=== PATIENT | female | born 1950 | race Two or more races ===

== ENCOUNTER → 2022-07-30 10:16 | Outpatient (BNV) | payer OTHER, SELFPAY | PROVIDERS: PCP Family Medicine; Visit Provider Internal Medicine Medical Oncology | DX: D64.9 Anemia, unspecified (principal) | CPT/HCPCS: 99204; 99213 ==

== ENCOUNTER 2023-04-02 10:10 | Outpatient (REF) | payer OTHER, SELFPAY ==
[2023-04-02 15:07] LABS: C Reactive Protein 0.17 mg/dL (< or = 0.50)
[2023-04-02 15:39] LABS: Rheumatoid Factor < 13.0 IU/mL (<15.0)
[2023-04-02 16:19] LABS: Erythrocyte Sedimentation Rate 16 MM/HR (0-20)
[2023-04-03 13:38] LABS: IgA 261 mg/dL (70-320); IgG 1386 mg/dL (600-1540); IgM 65 mg/dL (50-300)
[2023-04-03 16:48] LABS: Cyclic Citrullinated Peptide <16 UNITS
[2023-04-03 18:29] LABS: Transglutaminase Ab IgG <1.0 U/mL
[2023-04-06 14:48] LABS: Anti Nuclear Antibody Screen NEGATIVE (NEGATIVE)
== END 2023-04-02 10:11 | disposition home or self-care (01) ==
LOC: HO.CHCLDS 10:10
PROVIDERS: Visit Provider Family Medicine
DX: M19.90 Unspecified osteoarthritis, unspecified site (principal); R19.7 Diarrhea, unspecified
CPT/HCPCS: 36415; 82784; 85652; 86038; 86140; 86200; 86364; 86431

== ENCOUNTER 2023-04-03 08:35 | Outpatient (REF) | payer OTHER, SELFPAY ==
--- NOTE | ~2023-04-03 | XR_ITS ---
EXAMINATION: XR LUMBOSACRAL SPINE CLINICAL INFORMATION: Lower back pain. COMPARISON: None available. TECHNIQUE: AP and lateral views of the lumbar spine and lateral view of the lumbosacral junction. FINDINGS: There is bony demineralization. There is a minimal lumbar dextroscoliosis. Vertebral body heights are normal. There is mild disc space narrowing at L1-L2. The remaining disc spaces are well-maintained. No acute fracture or spondylolisthesis is seen. There is multi-level lumbar spondylosis. There is facet arthropathy, most pronounced at L4-L5. The paravertebral soft tissues are unremarkable. Multiple pelvic phleboliths are seen. XR/XR lumbar spine 2-3V IMPRESSION: 1. There is a slight lumbar dextroscoliosis. 2. There is mild degenerative disc disease at L1-L2. 3. There is multi-level lumbar spondylosis. 4. There is lumbar facet arthropathy, most pronounced at L4-L5.
== END 2023-04-03 08:36 | disposition home or self-care (01) ==
LOC: HO.HHCX 08:35
PROVIDERS: Visit Provider Family Medicine
DX: M19.90 Unspecified osteoarthritis, unspecified site (principal); M54.9 Dorsalgia, unspecified
CPT/HCPCS: 72100

== ENCOUNTER 2023-04-17 09:10 | Outpatient (REF) | payer OTHER, SELFPAY ==
[2023-04-23 19:49] LABS: Calprotectin, Fecal 456 mcg/g
== END 2023-04-17 09:11 | disposition home or self-care (01) ==
LOC: HO.CHCLNP 09:10
PROVIDERS: Visit Provider Family Medicine
DX: R19.7 Diarrhea, unspecified (principal)
CPT/HCPCS: 36415; 83993; 87329

== ENCOUNTER 2023-04-28 10:26 | Emergency (ER) | payer OTHER, SELFPAY ==
[2023-04-28 10:31] VITALS: BP 172/71; PULSE 57; RESP 16; TEMP 36.8; O2SAT 98; BMI 22.2
--- NOTE | 2023-04-28 10:43 | ECG_ITS ---
Test Reason : chest pain Blood Pressure : / mmHG Vent. Rate : 058 BPM Atrial Rate : 058 BPM P-R Int : 174 ms QRS Dur : 080 ms QT Int : 416 ms P-R-T Axes : 049 003 022 degrees QTc Int : 408 ms Sinus bradycardia Otherwise normal ECG No previous ECGs available Referred By: Generic ED Physician Electronically Signed By:TR VASQUEZ
[2023-04-28 11:00] LABS: MANUAL DIFF FLAG NO
[2023-04-28 11:03] LABS: Basophils Percent Auto 0.5 % (0-2); Eosinophils Absolute Auto 0.2 X10*3/uL (0.0-0.4); Eosinophils Percent Auto 2.7 % (0-4); Hematocrit 35.2 % (37.0-47.0); Hemoglobin 11.1 g/dl (12.0-16.0); Imm Gran Abs Auto 0.01 X10*3/uL (0.00-0.03); Imm Gran Pct Auto 0.2 % (0.0-0.4); Lymphocytes Absolute Auto 1.6 X10*3/uL (1.2-4.9); Lymphocytes Percent Auto 29.1 % (20-40); Mean Corpuscular HGB Conc 31.5 g/dl (31.0-35.0); Mean Corpuscular Hemoglobin 28.8 pg (27.0-33.0); Mean Corpuscular Volume 91.4 fL (80.0-98.0); Mean Platelet Volume 11.3 fL (9.4-12.3); Monocytes Absolute Auto 0.3 X10*3/uL (0.1-1.2); Monocytes Percent Auto 5.1 % (2-11); Neutrophils Absolute Auto 3.5 x10*3/uL (2.0-8.3); Neutrophils Percent Auto 62.4 % (45-73); Platelet Count 253 X10*3/uL (160-400); Red Blood Count 3.85 X10*6/uL (4.20-5.50); Red Cell Distribution Width 13.3 % (11.0-16.0); White Blood Count 5.5 X10*3/uL (4.8-10.8)
[2023-04-28 11:15] LABS: Anion Gap 9 (12-20); Blood Urea Nitrogen 14 mg/dL (9-16); Calcium 9.4 mg/dL (8.4-10.2); Carbon Dioxide 24 mmol/L (22-29); Chloride 111 mmol/L (96-108); Creatinine Clr Calc Pharmacy 45.6; Estimated Glomerular Filt Rate > 60; Glucose Random 86 mg/dL (60-115); Potassium 3.9 mmol/L (3.3-5.1); Sodium 140 mmol/L (135-145)
[2023-04-28 11:31] LABS: Troponin-I High Sensitivity < 2.7 ng/L (<3.5-17.0)
[2023-04-28 15:01] VITALS: BP 175/71; PULSE 60; RESP 16; TEMP 36.8; O2SAT 97
--- NOTE | 2023-04-28 15:26 | PC.NURSE ---
Pt placed on bedside monitor. Presents with HTN, (175/71, HR 60). Denies chest pain at this time, but endorsed heaviness in head . Respiration even and unlabored. No edema noted. Abd soft/non tender.
--- NOTE | 2023-04-28 15:28 | PC.NURSE ---
son at bedside
--- NOTE | 2023-04-28 15:30 | ED.CHESTPAIN ---
HPI - Chest Pain General Chief Complaint: Chest Pain Stated Complaint: Blood Pressure Issues Time Seen by Provider: 04/28/23 15:17 Source: patient and family Mode of arrival: ambulatory Limitations: no limitations History of Present Illness HPI narrative: Patient comes to the emergency room accompanied by her son. Patient went to her therapy for chronic back pain today, patient's blood pressure was in the 170s. Patient states that this morning she woke up with headache. Patient denies chest pain or shortness of breath. Patient states that she is compliant with her blood pressure medications, takes losartan 50 mg daily. At this time, patient having mild headache, no blurred vision, no chest pain or shortness of breath Related Data Home Medications Medication Instructions Recorded Confirmed amlodipine 10 mg tablet 1 tab DAILY 07/30/22 03/13/23 ferrous gluconate 324 mg (37.5 mg 2 tab PO QAM 07/30/22 03/13/23 iron) tablet rosuvastatin 40 mg tablet 1 tab QAM 07/30/22 03/13/23 sennosides 8.6 mg tablet (senna) 2 tab PO DAILY 07/30/22 03/13/23 Previous Rx's Medication Instructions Recorded amlodipine 10 mg tablet 10 mg PO DAILY #30 tabs 04/28/23 Allergies Allergy/AdvReac Type Severity Reaction Status Date / Time No Known Allergies Allergy Verified 03/13/23 09:56 Review of Systems Review of Systems: Constitutional : No Weight loss, No Fever, No Chills, No Night Sweats, No Fatigue, No Malaise ENT/Mouth : No Hearing loss, No Ear Pain, No Nasal Congestion, No Sinus Pain, No Hoarseness, No sore throat, No Rhinorrhea, No Swallowing Difficulty Eyes: No Eye Pain, No Swelling, No Redness, No Foreign Body, No Discharge, No Vision Changes Cardiovascular : No Chest Pain, No SOB, No Dyspnea on Exertion, No Orthopnea, No Edema, No Palpitations, complaining of high blood pressure Respiratory : No Cough, No Sputum, No Wheezing, No Smoke Exposure, No Dyspnea Gastrointestinal : No Nausea, No Vomiting, No Diarrhea, No Constipation, No abdominal Pain, No Hematochezia, No Melena Genitourinary : no irregular bleeding, No Dysuria, No Urinary Frequency, No Hematuria, No Urinary Incontinence, No Urgency, No Flank Pain, No Urinary Flow Changes, No Hesitancy Musculoskeletal : No joint pain, No Myalgias, No Joint Swelling Skin : No Skin Lesions, No rash Neuro : No Weakness, No Numbness, No Paresthesias, No Loss of Consciousness, No Dizziness, complaining of Headache Psych : No Anxiety/Panic, No Depression, No SI/HI/AH/VH, No Social Issues, Heme/Lymph: No Bruising, No Bleeding,No Lymphadenopathy Endocrine : No Polyuria, No Polydipsia, No Temperature Intolerance [facility] Past Medical History Medical History (Updated 04/28/23 @ 15:35 by Cecelia Adams MD) Hypertension Anemia Cataracts, both eyes Surgical History History of Family History Family History Mother Bone cancer Sister Breast cancer Maternal Uncle Colon cancer Maternal Grandfather Colon cancer Social History Social History Household Members: Children Housing: Apartment Are you a primary client care coordinator to a significant other at home: No 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 Oriented X3. No acute distress. Eyes: Pupils equal, round and reactive to light. ENT: Pharynx normal. Neck: Normal inspection. Neck supple. No lymph nodes noted. No crepitus CVS: Normal heart rate and rhythm. Pulses normal. Normal S1 and S2 Respiratory: No respiratory distress. Breath sounds normal. No Wheezing. No rales Abdomen: Soft and nontender. No rigidity. No distention. Skin: Skin warm and dry. Normal skin color. Normal skin turgor. Extremities: No lower extremity edema. No Lacerations. No Rash Neuro: Oriented X 3. No motor deficit. No sensory deficit. Moving all extremities. No slurred speech. CN 2 through 12 grossly intact Psych: calm, cooperative, normal affect Medical Decision Making Medical Decision Making [facility] Narrative: -my interpretation EKG: Sinus bradycardia, 158, no ST segment depression or elevation, no T-wave inversion, QTC 408 -my interpretation of labs: Chronic anemia, stable hemoglobin, chemistry unremarkable, troponin negative -patient's blood pressure 150 systolic -patient was given 1 dose of p.o. ibuprofen in the emergency room -patient states that she used to take amlodipine 10 mg, then because he was not controlling her blood pressure, her medications were completely switched and now taking losartan. Discussed with the patient that taking both medications losartan and amlodipine together may help control her blood pressure better. Patient will keep a log of her blood pressures and follow up with her primary care physician. Differential Diagnosis Differential Diagnoses: The differential diagnosis associated with the presentation includes (Hypertension, pain causing hypertension) Lab Data [facility] Lab Attestation statement: I reviewed the patient's lab results. 04/28/23 10:52 04/28/23 10:52 Labs: Lab Results 04/28/23 Range/Units 10:52 WBC 5.5 (4.8-10.8) X10*3/uL RBC 3.85 L (4.20-5.50) X10*6/uL Hgb 11.1 L (12.0-16.0) g/dl Hct 35.2 L (37.0-47.0) % MCV 91.4 (80.0-98.0) fL MCH 28.8 (27.0-33.0) pg MCHC 31.5 (31.0-35.0) g/dl RDW 13.3 (11.0-16.0) % Plt Count 253 (160-400) X10*3/uL MPV 11.3 (9.4-12.3) fL Immature Gran % (Auto) 0.2 (0.0-0.4) % Neut % (Auto) 62.4 (45-73) % Lymph % (Auto) 29.1 (20-40) % [place] % (Auto) 5.1 (2-11) % Eos % (Auto) 2.7 (0-4) % Baso % (Auto) 0.5 (0-2) % Lymph # (Auto) 1.6 (1.2-4.9) X10*3/uL [place] # (Auto) 0.3 (0.1-1.2) X10*3/uL Eos # (Auto) 0.2 (0.0-0.4) X10*3/uL Baso # (Auto) 0.0 (0.0-0.2) X10*3/uL Abs Immat Gran (auto) 0.01 (0.00-0.03) X10*3/uL Absolute Neuts (auto) 3.5 (2.0-8.3) x10*3/uL Absolute Nucleated RBC 0.000 (0.0-0.012) X10*3/uL Nucleated RBC % (auto) 0.0 (0.0-0.2) /100WBC Sodium 140 (135-145) mmol/L Potassium 3.9 (3.3-5.1) mmol/L Chloride 111 H (96-108) mmol/L Carbon Dioxide 24 (22-29) mmol/L Anion Gap 9 L (12-20) BUN 14 (9-16) mg/dL Creatinine 0.75 (0.5-1.4) mg/dL Estim Creat Clear Calc 45.6 Estimated GFR > 60 Random Glucose 86 (60-115) mg/dL Calcium 9.4 (8.4-10.2) mg/dL Troponin I High Sens < 2.7 (<3.5-17.0) ng/L Critical Care Time Critical Care Time Critical Care Time: Yes Total Critical Care Time: 30 Attestation: I have personally provided critical care time. Time includes review of lab data, radiology results, discussion with consultants, and monitoring for potential decompensation. Intervention performed as documented. Discharge Plan Discharge Clinical Impression: Hypertension Patient Disposition: Home, Self-Care Instructions: Hypertension (ED) Additional Instructions: Continue taking losartan 50 mg, add amlodipine 10 mg daily. Both of her medications can be taken together. Please follow-up with your primary care physician tomorrow. If you have any worsening or new symptoms, please return to the emergency room or call 911 Prescriptions: New amlodipine 10 mg tablet 10 mg PO DAILY Qty: 30 1RF No Action sennosides [senna] 8.6 mg tablet 2 tab PO DAILY amlodipine 10 mg tablet 1 tab DAILY rosuvastatin 40 mg tablet 1 tab QAM ferrous gluconate 324 mg (37.5 mg iron) tablet 2 tab PO QAM
[2023-04-28 15:33] VITALS: BP 134/71; PULSE 66; RESP 13; O2SAT 96
[2023-04-28] MEDS: Ibuprofen 600 MG TABLET PO (15:39)
--- NOTE | 2023-04-28 15:52 | PC.NURSE ---
Pt medically cleared for discharge. Discharge reviewed with pt and son w/ a staff medical staff director. Aware of plan of care.
== END 2023-04-28 15:55 | disposition home or self-care (01) ==
PROVIDERS: Emergency Provider Emergency Medicine; PCP Family Medicine
DX: I10 Essential (primary) hypertension (principal); D64.9 Anemia, unspecified; Z79.899 Other long term (current) drug therapy
CPT/HCPCS: 36415; 80048; 84484; 85025; 93005; 99283; 99284

== ENCOUNTER 2023-05-26 10:00 | Outpatient (RCR) | payer OTHER, SELFPAY ==
[2023-04-23 09:02] VITALS: BP 159/73
== END 2023-05-26 10:44 | disposition home or self-care (01) ==
LOC: HO.PT 10:00
PROVIDERS: PCP Family Medicine; Visit Provider Family Medicine
DX: M54.50 Low back pain, unspecified (principal); G89.29 Other chronic pain
CPT/HCPCS: 97110; 97162

== ENCOUNTER 2023-06-09 13:27 | Outpatient (REF) | payer OTHER, SELFPAY | END 2023-06-09 13:28 | disposition home or self-care (01) | LOC: HO.LAB 13:27 | PROVIDERS: PCP Family Medicine; Visit Provider Nurse Practitioner Family | DX: R19.7 Diarrhea, unspecified (principal); K21.9 Gastro-esophageal reflux disease without esophagitis; R14.0 Abdominal distension (gaseous); K59.01 Slow transit constipation | CPT/HCPCS: 99202 ==

== ENCOUNTER 2023-06-09 13:27 | Outpatient (AMB) | payer OTHER, SELFPAY ==
--- NOTE | 2023-06-09 13:32 | MHC.OFFVIS ---
Intake Vital Signs 06/09/23 13:39 Height 4 ft 11 in Weight 110 lb 3.698 oz BMI 22.3 BP 155/73 H Blood Pressure Location Lt brachial Position Sitting Pulse 65 Intake Visit Reasons: Diarrhea, Unspecified type Intake Note: Massiel presents in the office as a new patient for diarrhea. CC: She states that she is still having diarrhea - no pains in the stomach today. Trimmer Operator Three Knife Required: Yes Trimmer Operator Three Knife Name: [id number] Jessica Allergies pickle Allergy (Mild, Uncoded 06/09/23 13:40) Unknown HPI Diarrhea, Unspecified type HPI Details 73-year-old female with past medical history of anemia, hypertension, osteoporosis, chronic arthritis is here today for initial consultation. Patient was sent to us by PCP for evaluation of her current GI symptoms. Patient reports that for the last 8 months or so she has been having diarrhea. Patient states that she will have 1 or 2 lose stools a day. Sometimes she will be constipated, she will use Senokot. Patient reports that constipation 1 to 2 times a week. Patient denies any abdominal pain or discomfort. She reports postprandial abdominal bloating and fullness. Patient also reports postprandial epigastric discomfort with dyspepsia, without dysphagia or odynophagia. Patient reports that her maternal cousin was diagnosed with Crohn's. Patient never had colonoscopy in the past. Denies melena, hematochezia, unintentional weight loss or ribbon like stools. Patient's PCP checked CRP and stool calprotectin. CRP normal, stool calprotectin 456. Patient is not taking any PPIs or H2 blockers for her symptoms of acid reflux. For his symptoms of acid reflux Patient denies melena, hematochezia, unintentional weight loss or ribbon like stools. Patient never had colonoscopy in the past. 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) Patient Tobacco Use Status: Never used Tobacco Second Hand Smoke Exposure: No service: No Current occupational status: disabled Review of Systems Const Denies weight gain and Denies weight loss ENT Reports no additional complaints, Denies dysphagia and Denies odynophagia Card Reports no additional complaints Resp Reports no additional complaints GI Reports abdominal pain (Epigastric), Denies belching, Denies melena, Reports bloating, Denies change in bowel habits, Denies dysphagia, Denies excessive flatus, Denies dyspepsia, Reports heartburn, Denies diarrhea, Reports loose stools, Denies nausea, Denies odynophagia and Denies vomiting Reports no additional complaints Musc Reports no additional complaints Neuro Reports no additional complaints Psych Reports no additional complaints Endo Reports no additional complaints Physical Exam Vital Signs: BMI result Body Mass Index 22.3 Const General: healthy appearing, no acute distress and well developed Nutritional Appearance: well nourished Orientation/consciousness: patient oriented x3 HEENT Head: Yes normal to inspection, Yes normocephalic and Yes atraumatic Face and sinus: Yes normal facial exam Mouth: Normal oral and palatal mucosa present Throat: Yes posterior oropharynx normal, Yes tonsils normal and Yes uvula midline Eyes General: appearance normal, both eyes and all related structures Neck Neck: Yes normal visual inspection, Yes full ROM and Yes trachea midline Thyroid: Thyroid normal Resp Effort & Inspection: normal respiratory effort, able to speak in complete sentences, no tracheal deviation and symmetric chest movement Auscultation: clear to auscultation bilaterally Cardio Rate: regular rate Heart sounds: S1 normal heart sound present and S2 normal heart sound present GI Inspection: Yes normal to inspection and No distended Palpation (GI): Soft to palpation, not firm, nontender and No hepatosplenomegaly present Auscultation: normal bowel sounds General: Yes no CVA tenderness Back/Spine/Pelvis Back: no CVA tenderness Skin General skin exam: elasticity normal, turgor normal and dry skin Neuro General: patient oriented x3 Psych Appearance: grossly normal Mental Status: mental status grossly normal Assessment & Plan Assessment & Plan (1) Diarrhea: Code(s): R19.7 - Diarrhea, unspecified Qualifiers: Diarrhea type: unspecified type Qualified Code(s): R19.7 - Diarrhea, unspecified (2) GERD (gastroesophageal reflux disease): Code(s): K21.9 - Gastro-esophageal reflux disease without esophagitis Qualifiers: Esophagitis presence: esophagitis presence not specified Qualified Code(s): K21.9 - Gastro-esophageal reflux disease without esophagitis (3) Postprandial abdominal bloating: Code(s): R14.0 - Abdominal distension (gaseous) (4) Constipation: Code(s): K59.00 - Constipation, unspecified Qualifiers: Constipation type: slow transit constipation Qualified Code(s): K59.01 - Slow transit constipation Plan As mentioned above in HPI patient had increased fecal calprotectin. Possibility IBD or inflammation in her colon. Will send GI panel, C diff. C reactive protein was normal. Will also check for H pylori, will treat empirically if positive. Patient has epigastric discomfort, postprandial abdominal bloating, postprandial abdominal fullness. If H pylori negative and patient continues postprandial fullness will send patient for gastric emptying study. Patient will need to move her bowels better. Will send her script for Citrucel to help her bulk stools and Dulcolax to help her empty her bowels completely. Will check thyroid study, vitamin B12, folate, vitamin-D level to rule out malabsorption. I will see patient in 5 weeks, sooner on as needed basis. He patient is agreeable to this plan and verbalizes understanding of instructions. She was given the opportunity to ask questions and all questions answered. Thank you for allowing to participate in her care Orders: Orders H Pylori Breath Test Today Vitamin D 25-OH (D2 and D3) Today E55.9 - Vitamin D deficiency, unspecified GI Panel Today R19.7 - Diarrhea, unspecified CDiff Gene PCR Today R19.7 - Diarrhea, unspecified TSH reflex Free T4 Today R19.7 - Diarrhea, unspecified Vitamin B12 and Folate Today R19.7 - Diarrhea, unspecified Medications: New bisacodyl (Dulcolax (bisacodyl)) 10 mg (2 x 5 mg) PO BEDTIME 180 tabs 4RF methylcellulose (laxative) (Citrucel) 500 mg PO DAILY 30 tabs 2RF constipation K59.00 - Constipation, unspecified Patient Instructions: Empiece a ojy Citrucel 500 mg todas las ma?anas para ayudarle a aumentar el volumen de waldo heces. Aseg?rese de beber mucho l?quidos kike el d?a. [place] Dulcolax 5 mg 1 o 2 tabletas cada noche para ayudarle a evacuar los intestinos. Comenzar? a joy omeprazol 20 mg todas las ma?anas para ayudar con el reflujo ?cido.Vaya a hacer donaldson an?lisis de laboratorio y traiga nathan muestra de heces al laboratorio para analizarla Coding Level of Care Code New Pt Level 4 (41193) Diagnoses Diarrhea, unspecified type R19.7 Diarrhea type: unspecified type Gastroesophageal reflux disease, unspecified whether esophagitis present K21.9 Esophagitis presence: esophagitis presence not specified Postprandial abdominal bloating R14.0 Slow transit constipation K59.01 Constipation type: slow transit constipation Time Spent (min) 45 Comment 30 minutes spent with patient and additional 15 minutes spent reviewing her records
[2023-06-09 13:39] VITALS: BP 155/73; PULSE 65; BMI 22.3
== END 2023-06-09 14:31 | disposition home or self-care (01) ==
PROVIDERS: PCP Family Medicine; Visit Provider Nurse Practitioner Family
DX: R19.7 Diarrhea, unspecified (principal); K21.9 Gastro-esophageal reflux disease without esophagitis; R14.0 Abdominal distension (gaseous); K59.01 Slow transit constipation
CPT/HCPCS: 99204

== ENCOUNTER 2023-06-10 09:05 | Outpatient (REF) | payer OTHER, SELFPAY ==
[2023-06-10 11:07] LABS: TSH reflex Free T4 1.97 uIU/mL (0.32-4.0)
[2023-06-10 11:20] LABS: Folate 14.1 ng/mL (> or = 4.0); Vitamin B12 277 pg/mL (200-900)
[2023-06-10 14:42] LABS: Adenovirus F 40/41 Not Detected (Not Detect.); Astrovirus Not Detected (Not Detect.); Campylobacter Not Detected (Not Detect.); Cryptosporidium Not Detected (Not Detect.); Cyclospora cayetanensis Not Detected (Not Detect.); E. coli EAEC Not Detected (Not Detect.); E. coli EPEC Detected (Not Detect.); E. coli ETEC Not Detected (Not Detect.); E. coli STEC Not Detected (Not Detect.); Entamoeba histolytica Not Detected (Not Detect.); Giardia lamblia Not Detected (Not Detect.); Norovirus GI/GII Not Detected (Not Detect.); Plesiomonas shigelloides Not Detected (Not Detect.); Rotavirus A Not Detected (Not Detect.); Salmonella Not Detected (Not Detect.); Sapovirus Not Detected (Not Detect.); Shigella sp./EIEC Not Detected (Not Detect.); Vibrio Not Detected (Not Detect.); Vibrio Cholerae Not Detected (Not Detect.); Yersinia enterocolitica Not Detected (Not Detect.)
[2023-06-10 17:14] LABS: H Pylori Breath Test Negative (Negative)
[2023-06-14 16:17] LABS: Vitamin D 25-OH, D2 <4 ng/mL; Vitamin D 25-OH, D3 25 ng/mL; Vitamin D 25-OH, Total 25 ng/mL (30-100)
== END 2023-06-10 09:06 | disposition home or self-care (01) ==
LOC: HO.LAB 09:05
PROVIDERS: PCP Family Medicine; Visit Provider Nurse Practitioner Family
DX: R19.7 Diarrhea, unspecified (principal); E55.9 Vitamin D deficiency, unspecified
CPT/HCPCS: 36415; 82306; 82607; 82746; 83013; 84443; 87507

== ENCOUNTER 2023-07-14 10:12 | Outpatient (AMB) | payer OTHER, SELFPAY ==
[2023-07-14 10:15] VITALS: BP 128/65; PULSE 73; BMI 22.3
--- NOTE | 2023-07-14 10:15 | A.OFFVIS_ITS ---
Intake Vital Signs 07/14/23 10:15 Height 4 ft 11 in Weight 110 lb 3.698 oz BMI 22.3 BP 128/65 Blood Pressure Location Lt brachial Position Sitting Pulse 73 Intake Visit Reasons: 5 week follow up Constipation Intake Note: Massiel presents in the office as a 5 week follow up for constipation. CC: Her constipation has gotten better since her last visit. Her stomach is a little burning at times. Splicing Machine Operator Required: Yes Splicing Machine Operator Name: RETAIL BEAUTY SPECIALIST / Daughter in law Allergies pickle Allergy (Mild, Uncoded 07/14/23 10:17) Unknown HPI 5 week follow up Constipation HPI Details LAST VISIT Diarrhea GERD (gastroesophageal reflux disease) Postprandial abdominal bloating Constipation Plan As mentioned above in HPI patient had increased fecal calprotectin. Possibility IBD or inflammation in her colon. Will send GI panel, C diff. C reactive protein was normal. Will also check for H pylori, will treat empirically if positive. Patient has epigastric discomfort, postprandial abdominal bloating, postprandial abdominal fullness. If H pylori negative and patient continues postprandial fullness will send patient for gastric emptying study. Patient will need to move her bowels better. Will send her script for Citrucel to help her bulk stools and Dulcolax to help her empty her bowels completely. Will check thyroid study, vitamin B12, folate, vitamin-D level to rule out malabsorption. I will see patient in 5 weeks, sooner on as needed basis. He patient is agreeable to this plan and verbalizes understanding of instructions. She was given the opportunity to ask questions and all questions answered. ? Thank you for allowing to participate in her care Orders Orders H Pylori Breath Test Today Vitamin D 25-OH (D2 and D3) Today E55.9 GI Panel Today R19.7 CDiff Gene PCR Today R19.7 TSH reflex Free T4 Today R19.7 Vitamin B12 and Folate Today R19.7 Medications New bisacodyl (Dulcolax (bisacodyl)) 10 mg (2 x 5 mg) PO BEDTIME 180 tabs 4RF methylcellulose (laxative) (Citrucel) 500 mg PO DAILY 30 tabs 2RF constipation K59.00 TODAY'S VISIT: Patient is here today for follow-up. Patient reports that she has been feeling better and moving her bowels without any issues. Patient had diarrhea in the past that subsided. Patient had E coli when did GI panel. Patient denies any dehydration. All patient's blood work was normal except mildly low vitamin-D level. Breath test negative for H pylori. Patient does report occasional epigastric burning postprandially. Denies dyspepsia, dysphagia or odynophagia. Patient is not on any PPI therapy. 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) Patient Tobacco Use Status: Never used Tobacco Second Hand Smoke Exposure: No service: No Current occupational status: disabled Review of Systems Const Denies weight gain and Denies weight loss ENT Reports no additional complaints, Denies dysphagia and Denies odynophagia Card Reports no additional complaints Resp Reports no additional complaints GI Reports abdominal pain (Epigastric), Denies belching, Denies melena, Reports bloating, Denies change in bowel habits, Denies dysphagia, Denies excessive flatus, Denies dyspepsia, Reports heartburn, Denies diarrhea, Denies loose stools, Denies nausea, Denies odynophagia and Denies vomiting Reports no additional complaints Musc Reports no additional complaints Neuro Reports no additional complaints Psych Reports no additional complaints Endo Reports no additional complaints Physical Exam Vital Signs: Last Vital Signs Pulse 73 07/14/23 10:15 BP 128/65 07/14/23 10:15 BMI result Body Mass Index 22.3 Const General: healthy appearing, no acute distress and well developed Nutritional Appearance: well nourished Orientation/consciousness: patient oriented x3 HEENT Head: Yes normal to inspection, Yes normocephalic and Yes atraumatic Face and sinus: Yes normal facial exam Mouth: Normal oral and palatal mucosa present Throat: Yes posterior oropharynx normal, Yes tonsils normal and Yes uvula midline Eyes General: appearance normal, both eyes and all related structures Neck Neck: Yes normal visual inspection, Yes full ROM and Yes trachea midline Thyroid: Thyroid normal Resp Effort & Inspection: normal respiratory effort, able to speak in complete sentences, no tracheal deviation and symmetric chest movement Auscultation: clear to auscultation bilaterally Cardio Rate: regular rate GI Inspection: Yes normal to inspection and No distended Palpation (GI): Soft to palpation, not firm, nontender and No hepatosplenomegaly present Auscultation: normal bowel sounds General: Yes no CVA tenderness Back/Spine/Pelvis Back: no CVA tenderness Skin General skin exam: elasticity normal, turgor normal and dry skin Neuro General: patient oriented x3 Psych Appearance: grossly normal Mental Status: mental status grossly normal Affect: normal affect Results Reviewed Results Reviewed: Laboratory Tests 06/10/23 09:29 Vitamin B12 277 25-OH Vitamin D Total 25 L Folate 14.1 TSH 1.97 Assessment & Plan Assessment & Plan (1) GERD (gastroesophageal reflux disease): Code(s): K21.9 - Gastro-esophageal reflux disease without esophagitis Qualifiers: Esophagitis presence: esophagitis presence not specified Qualified Code(s): K21.9 - Gastro-esophageal reflux disease without esophagitis (2) Postprandial abdominal bloating: Code(s): R14.0 - Abdominal distension (gaseous) (3) Constipation: Code(s): K59.00 - Constipation, unspecified Qualifiers: Constipation type: slow transit constipation Qualified Code(s): K59.01 - Slow transit constipation (4) Postprandial epigastric pain: Code(s): R10.13 - Epigastric pain Plan Patient will start taking pantoprazole in the morning half an hour before breakfast. Discussed with patient avoiding dietary triggers late night snacking. Staying upright for minimal 3 hours after meals discussed with patient. Patient can continue taking Citrucel in the morning and Dulcolax tablets in the evening. Mildly low vitamin-D levels will send a script to pharmacy. Patient was encouraged to increase fluid intake and activity to promote better bowel motility. I will see patient in 5 weeks so we can discuss upper endoscopy and colonoscopy. Patient is agreeable to this plan and verbalizes understanding of instructions. She was given the opportunity to ask questions and all questions answered. Thank you for allowing me to participate in her care Medications: New pantoprazole take one tablet half an hour before breakfast 40 mg PO DAILY 90 tabs 2RF K21.9 - Gastro-esophageal reflux disease without esophagitis cholecalciferol (vitamin D3) 50 mcg PO DAILY 90 caps 3RF R79.89 - Other specified abnormal findings of blood chemistry Coding Level of Care Code Est Pt Level 4 (98613) Diagnoses Gastroesophageal reflux disease, unspecified whether esophagitis present K21.9 Esophagitis presence: esophagitis presence not specified Postprandial abdominal bloating R14.0 Slow transit constipation K59.01 Constipation type: slow transit constipation Postprandial epigastric pain R10.13 Time Spent (min) 35 Comment 20 minutes spent with patient and additional 15 minutes spent reviewing her records
== END 2023-07-14 10:47 | disposition home or self-care (01) ==
PROVIDERS: PCP Family Medicine; Visit Provider Nurse Practitioner Family
DX: K21.9 Gastro-esophageal reflux disease without esophagitis (principal); R14.0 Abdominal distension (gaseous); K59.01 Slow transit constipation; R10.13 Epigastric pain
CPT/HCPCS: 99214

== ENCOUNTER → 2023-07-14 10:12 | Outpatient (BNVA) | payer OTHER, SELFPAY | PROVIDERS: PCP Family Medicine; Visit Provider Nurse Practitioner Family | DX: K21.9 Gastro-esophageal reflux disease without esophagitis (principal); K59.01 Slow transit constipation; R14.0 Abdominal distension (gaseous); R10.13 Epigastric pain | CPT/HCPCS: 99212 ==

== ENCOUNTER 2023-08-18 10:48 | Outpatient (AMB) | payer OTHER, SELFPAY ==
--- NOTE | 2023-08-18 11:04 | A.OFFVIS_ITS ---
Intake Vital Signs 08/18/23 11:06 Height 4 ft 11 in Weight 112 lb 6.972 oz BMI 22.7 BP 153/67 H Blood Pressure Location Lt brachial Position Sitting Pulse 61 Intake Visit Reasons: 5 week follow up Intake Note: Massiel presents in the office as a 5 week follow up. CC: She is still experiencing pains in her stomach. Laborer Plumbing Required: Yes Laborer Plumbing Name: CATASTROPHE CLAIMS SUPERVISOR Allergies pickle Allergy (Mild, Uncoded 08/18/23 11:07) Unknown HPI 5 week follow up HPI Details LAST VISIT: GERD (gastroesophageal reflux disease) Postprandial abdominal bloating Constipation Postprandial epigastric pain Plan Patient will start taking pantoprazole in the morning half an hour before breakfast. Discussed with patient avoiding dietary triggers late night snacking. Staying upright for minimal 3 hours after meals discussed with patient. Patient can continue taking Citrucel in the morning and Dulcolax tablets in the evening. Mildly low vitamin-D levels will send a script to pharmacy. Patient was encourag ed to increase fluid intake and activity to promote better bowel motility. I will see patient in 5 weeks so we can discuss upper endoscopy and colonoscopy. Patient is agreeable to this plan and verbalizes understanding of instructions. She was given the opportunity to ask questions and all questions answered. ? Thank you for allowing me to participate in her care Medications New pantoprazole take one tablet half an hour before breakfast 40 mg PO DAILY 90 tabs 2RF K21.9 cholecalciferol (vitamin D3) 50 mcg PO DAILY 90 caps 3RF R79.89 TODAY'S VISIT Patient is here today for follow-up. Patient is accompanied by her CATASTROPHE CLAIMS SUPERVISOR. Patient's CATASTROPHE CLAIMS SUPERVISOR will translate for as per patient's request. Patient reports that she is moving her bowels better now. Patient is taking Citrucel in the morning and physical tablets at bedtime and reports that she moves her bowels well. Patient denies any melena, hematochezia, unintentional weight loss or ribbon like stools. Patient denies any dyspepsia, dysphagia or odynophagia. Patient does however reports epigastric discomfort postprandially. Patient currently is taking pantoprazole in the morning and feels like medication helps but patient has more frequent epigastric discomfort postprandially. Patient also reports that she wakes up in the morning with epigastric discomfort. Denies any nausea or vomiting. Patient did change her diet. Avoiding food that is fried or spicy. 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) Patient Tobacco Use Status: Never used Tobacco Second Hand Smoke Exposure: No service: No Current occupational status: disabled Review of Systems Const Denies weight gain and Denies weight loss ENT Reports no additional complaints, Denies dysphagia and Denies odynophagia Card Reports no additional complaints Resp Reports no additional complaints GI Reports abdominal pain (Epigastric), Denies belching, Denies melena, Denies bloating, Denies change in bowel habits, Denies dysphagia, Denies excessive flatus, Denies dyspepsia, Denies heartburn, Denies diarrhea, Denies loose stools, Denies nausea, Denies odynophagia and Denies vomiting Reports no additional complaints Musc Reports no additional complaints Neuro Reports no additional complaints Psych Reports no additional complaints Endo Reports no additional complaints Physical Exam Vital Signs: Last Vital Signs Pulse 61 08/18/23 11:06 BP 153/67 H 08/18/23 11:06 BMI result Body Mass Index 22.7 Const General: healthy appearing, no acute distress and well developed Nutritional Appearance: well nourished Orientation/consciousness: patient oriented x3 Resp Effort & Inspection: normal respiratory effort, able to speak in complete sentences, no tracheal deviation and symmetric chest movement Auscultation: clear to auscultation bilaterally Cardio Rate: regular rate GI Inspection: Yes normal to inspection and No distended Palpation (GI): Soft to palpation, not firm, nontender and No hepatosplenomegaly present Auscultation: normal bowel sounds General: Yes no CVA tenderness Back/Spine/Pelvis Back: no CVA tenderness Skin General skin exam: elasticity normal, turgor normal and dry skin Neuro General: patient oriented x3 Psych Appearance: grossly normal Mental Status: mental status grossly normal Assessment & Plan Assessment & Plan (1) GERD (gastroesophageal reflux disease): Code(s): K21.9 - Gastro-esophageal reflux disease without esophagitis Qualifiers: Esophagitis presence: esophagitis presence not specified Qualified Code(s): K21.9 - Gastro-esophageal reflux disease without esophagitis (2) Postprandial abdominal bloating: Code(s): R14.0 - Abdominal distension (gaseous) (3) Constipation: Code(s): K59.00 - Constipation, unspecified Qualifiers: Constipation type: slow transit constipation Qualified Code(s): K59.01 - Slow transit constipation (4) Postprandial epigastric pain: Code(s): R10.13 - Epigastric pain Plan Continue Dulcolax and Citrucel. Patient was also encouraged to increase fluid intake and activity to promote better bowel motility. Patient will start taking his omeprazole. Pantoprazole. Patient will take famotidine at bedtime to prevent morning epigastric discomfort. Discussed with patient avoiding dietary triggers as well as late night snacking. Staying upright for minimal Creon hours after meals discussed with patient. Patient will return in 2 months so we can discuss going for upper endoscopy and colonoscopy. Patient denies any cardiac or respiratory symptoms. Patient is on low-dose aspirin. Patient denies any issues with anesthesia in the past. No family history of colorectal cancer. Denies history of sleep apnea. Patient will call our office sooner if she will have any GI concerning symptoms. Patient and her CATASTROPHE CLAIMS SUPERVISOR are both agreeable to plan of care and verbalized understanding of instructions. They were given the opportunity to ask questions and all questions answered. Medications: New esomeprazole magnesium (Nexium) 40 mg PO DAILY 30 caps 5RF K21.9 - Gastro- esophageal reflux disease without esophagitis famotidine 40 mg PO BEDTIME 30 tabs 3RF K21.9 - Gastro-esophageal reflux disease without esophagitis Discontinued pantoprazole take one tablet half an hour before breakfast Discontinued Reason: Doctor's Order 40 mg PO DAILY 90 tabs 2RF K21.9 - Gastro-esophageal reflux disease without esophagitis Coding Level of Care Code Est Pt Level 3 (27620) Diagnoses Gastroesophageal reflux disease, unspecified whether esophagitis present K21.9 Esophagitis presence: esophagitis presence not specified Postprandial abdominal bloating R14.0 Slow transit constipation K59.01 Constipation type: slow transit constipation Postprandial epigastric pain R10.13 Time Spent (min) 30 Comment 20 minutes spent with patient and additional 10 minutes spent reviewing her records
[2023-08-18 11:06] VITALS: BP 153/67; PULSE 61; BMI 22.7
== END 2023-08-18 11:53 | disposition home or self-care (01) ==
PROVIDERS: PCP Family Medicine; Visit Provider Nurse Practitioner Family
DX: K21.9 Gastro-esophageal reflux disease without esophagitis (principal); R14.0 Abdominal distension (gaseous); K59.01 Slow transit constipation; R10.13 Epigastric pain
CPT/HCPCS: 99213

== ENCOUNTER → 2023-08-18 10:48 | Outpatient (BNVA) | payer OTHER, SELFPAY | PROVIDERS: PCP Family Medicine; Visit Provider Nurse Practitioner Family | DX: K21.9 Gastro-esophageal reflux disease without esophagitis (principal); K59.01 Slow transit constipation; R14.0 Abdominal distension (gaseous); R10.13 Epigastric pain | CPT/HCPCS: 99212 ==

== ENCOUNTER 2023-09-08 09:27 | Outpatient (AMB) | payer OTHER, SELFPAY ==
[2023-09-08 09:31] VITALS: BP 138/76; PULSE 70; O2SAT 98; BMI 22.6
--- NOTE | 2023-09-08 09:31 | MHC.OFFVIS ---
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 Pt states her right leg is bothering her. Pt states she has pain in her right leg occasionally and has swelling in her right leg. Pt states she also gets a burning sension in her right leg as well. Pulling Machine Operator Required: Yes Pulling Machine Operator Language: Hydraulics Engineer Name: Byron([id number]) Allergies pickle Allergy (Mild, Uncoded 09/08/23 09:32) Unknown HPI CLOTH HANDLER VV HPI Details 73-year-old female patient presents for painful varicose veins. Complaints include pain over varicosities, swelling of lower extremities, cramping, fatigue, and heaviness of the lower extremities. It has been affecting there daily activities including walk. It is noted more so in right leg. She is most concerned about this right pretibial surface cluster of varicosities Patient denies any previous venous surgery or injections. Patient denies any history of DVT/ PE. Patient denies any history of phlebitis. Trial of compression includes - [id number] They now present for vascular evaluation regarding their varicose veins. 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) Patient Tobacco Use Status: Never used Tobacco Second Hand Smoke Exposure: No service: No Current occupational status: disabled Review of Systems Const Reports as per HPI ENT Reports no additional complaints Card Denies chest pain, Denies chest pain at rest and Denies chest pain with activity Resp Denies chest congestion and Denies cough GI Reports no additional complaints Musc Details: pain over varicosities, aching of lower extremities, swelling, cramping, heaviness and tiredness, itching Denies abnormal gait Skin/Breast Reports pruritus and Denies wounds Neuro Reports no additional complaints and Denies abnormal gait Psych Denies no additional complaints Physical Exam Vital Signs: Last Vital Signs Pulse 70 09/08/23 09:31 BP 138/76 09/08/23 09:31 Pulse Ox 98 09/08/23 09:31 Oxygen Delivery Method Room Air 09/08/23 09:31 BMI result Body Mass Index 22.6 Const General: cooperative, healthy appearing and comfortable Orientation/consciousness: oriented to person, oriented to place and oriented to time Neck Carotids: no bruits Chest Chest palpation & inspection: normal inspection of the chest and normal palpation of entire chest wall Resp Effort & Inspection: normal respiratory effort and able to speak in complete sentences Cardio Rate: regular rate Heart sounds: S1 normal heart sound present and S2 normal heart sound present Peripheral pulses: Peripheral pulses 2+ throughout GI Inspection: Yes normal to inspection Skin Other: +2 edema, large rope-like varicosities greater than 4 mm right pretibial surface CEAP Classification C4 - skin color changes Ep - Etiology Primary As - superficial veins P - reflux General skin exam: dry skin Neuro General: oriented to person, oriented to place and oriented to time Extrem Right lower extremity: full ROM, normal capillary refill and edema Left lower extremity: full ROM, normal capillary refill and edema Psych Mental Status: mental status grossly normal Assessment & Plan Assessment & Plan (1) Varicose veins of right lower extremity with inflammation: Code(s): I83.11 - Varicose veins of right lower extremity with inflammation Plan: In short, the patient has evidence of venous insufficiency. I have discussed the pathophysiology with the patient. In addition I have provided informational material regarding venous disease to the patient. We have discussed conservative measures including compression, elevation, and exercise. I have also provided a handout regarding appropriate use of compression stockings and where to purchase good compression stockings as well. I have taken the liberty of ordering venous insufficiency testing with the patient. They will follow up with me after testing. The patient had an opportunity to ask questions regarding the treatment plan. All questions were answered. Imaging studies, laboratory studies and physical exam results were discussed and reviewed in detail. No major barriers to understanding were identified. The patient expressed understanding and agreement with the above treatment plan. The patient is aware they should contact our office by phone for worsening of the current condition or the appearance of new symptoms. Thank you for allowing me to participate in the vascular care of this patient. If you have any questions or concerns regarding the treatment for the above condition please do not hesitate to contact me. The office telephone contact is [phone]. This note is constructed using voice recognition software. While every effort has been made to ensure accuracy, formal service waiter errors may have been included. Thank you for allowing me to participate in the care of your patient. Yours sincerely, Roger Dalton MD, FACS, R.P.V.I. Orders: Orders US venous insuf bilat 1 Week I83.11 - Varicose veins of right lower extremity with inflammation Coding Level of Care Code New Pt Level 4 (97670) Diagnoses Varicose veins of right lower extremity with inflammation I83.11
== END 2023-09-08 09:55 | disposition home or self-care (01) ==
PROVIDERS: PCP Family Medicine; Visit Provider Surgery Vascular Surgery
DX: I83.11 Varicose veins of right lower extremity with inflammation (principal)
CPT/HCPCS: 99203

== ENCOUNTER → 2023-09-08 09:27 | Outpatient (BNVA) | payer OTHER, SELFPAY | PROVIDERS: PCP Family Medicine; Visit Provider Surgery Vascular Surgery | DX: I83.11 Varicose veins of right lower extremity with inflammation (principal) | CPT/HCPCS: 99202 ==

== ENCOUNTER 2023-09-18 10:10 | Outpatient (REF) | payer OTHER, SELFPAY ==
--- NOTE | ~2023-09-18 | US_ITS ---
EXAMINATION: US LOWER EXTREMITY VENOUS (REFLUX EXAM), BILATERAL CLINICAL INDICATION: Chronic venous insufficiency with lower extremity varicose veins with inflammation COMPARISON: None. TECHNIQUE: Color flow triplex imaging and compression Doppler was performed to evaluate both the deep and the superficial systems bilaterally. To evaluate the superficial system, the examination was performed in the upright position. Color-flow Doppler ultrasound and compression ultrasound were utilized. In addition, maneuvers were utilized to demonstrate reflux. FINDINGS: 1. DEEP VENOUS ULTRASOUND OF THE RIGHT LOWER EXTREMITY: Common Femoral Vein: Compressible, normal respiratory variation and augmented flow. Femoral Vein: Compressible, normal color flow and augmentation. Popliteal Vein: Compressible, normal augmentation. Deep Reflux: There is no evidence of reflux in the deep system in either the common femoral vein, superficial femoral or the popliteal vein. There is no evidence of a Gaitan's cyst. 2. SUPERFICIAL ULTRASOUND WITH DOPPLER OF RIGHT LOWER EXTREMITY: GREAT SAPHENOUS VEIN: Saphenofemoral Junction: 0.5 cm; Reflux: 0 ms Proximal Thigh: 0.3 cm; Reflux: 0 ms Mid Thigh: 0.2 cm; Reflux: 0 ms Above Knee: 0.2 cm; Reflux: 0 ms At Knee: 0.1 cm; Reflux: 0 ms Below Knee: 0.1 cm; Reflux: 0 ms Mid Calf: 0.1 cm; Reflux: 0 ms Ankle: 0.1 cm; Reflux: 0 ms DUPLICATED MEDIAL GREAT SAPHENOUS VEIN: Diameter: 0.3 cm Reflux: None DUPLICATED LATERAL GREAT SAPHENOUS VEIN: Diameter: None imaged Reflux: NA SMALL SAPHENOUS VEIN: Saphenopopliteal Junction: 0.2 cm; Reflux: 0 ms Proximal: 0.2 cm; Reflux: 0 ms Distal: 0.2 cm; Reflux: 0 ms VEIN OF GIACOMINI: Size: NA Reflux: NA PERFORATORS: Location: None significant Size: NA Reflux: NA VARICOSITIES: Location: Anterior mid calf Size: 0.2 cm Reflux: None 3. DEEP VENOUS ULTRASOUND OF THE LEFT LOWER EXTREMITY: Common Femoral Vein: Compressible, normal respiratory variation and augmented flow. Femoral Vein: Compressible, normal color flow and augmentation. Popliteal Vein: Compressible, normal augmentation. Deep Reflux: There is no evidence of reflux in the deep system in either the common femoral vein, superficial femoral or the popliteal vein. There is no evidence of a Gaitan's cyst. 4. SUPERFICIAL ULTRASOUND WITH DOPPLER OF LEFT LOWER EXTREMITY: GREAT SAPHENOUS VEIN: Saphenofemoral Junction: 0.4 cm; Reflux: 0 ms Proximal Thigh: 0.5 cm; Reflux: 0 ms Mid Thigh: 0.2 cm; Reflux: 0 ms Above Knee: 0.1 cm; Reflux: 0 ms At Knee: 0.2 cm; Reflux: 0 ms Below Knee: 0.1 cm; Reflux: 0 ms Mid Calf: 0.1 cm; Reflux: 0 ms Ankle: 0.1 cm; Reflux: 0 ms DUPLICATED MEDIAL GREAT SAPHENOUS VEIN: Diameter: 0.2 cm Reflux: None DUPLICATED LATERAL GREAT SAPHENOUS VEIN: Diameter: None imaged Reflux: NA SMALL SAPHENOUS VEIN: Saphenopopliteal Junction: 0.1 cm; Reflux: 0 ms Proximal: 0.1 cm; Reflux: 0 ms Distal: 0.2 cm; Reflux: 0 ms VEIN OF GIACOMINI: Size: NA Reflux: NA PERFORATORS: Location: None imaged Size: NA Reflux: NA VARICOSITIES: Location: None Imaged Size: NA Reflux: NA US/US venous insuf bilat IMPRESSION: Right: No significant venous insufficiency or reflux in the great saphenous or small saphenous vein. Small varicose vein in the calf without significant reflux Left: No significant venous insufficiency or reflux in the great saphenous vein or small saphenous vein.
== END 2023-09-18 10:11 | disposition home or self-care (01) ==
LOC: HO.US 10:10
PROVIDERS: PCP Family Medicine; Visit Provider Surgery Vascular Surgery
DX: I83.11 Varicose veins of right lower extremity with inflammation (principal)
CPT/HCPCS: 93970

== ENCOUNTER 2023-11-05 10:55 | Outpatient (AMB) | payer OTHER, SELFPAY ==
[2023-11-05 11:03] VITALS: BMI 22.8
--- NOTE | 2023-11-05 11:03 | A.OFFVIS_ITS ---
Intake Vital Signs 11/05/23 11:03 Height 4 ft 11 in Weight 113 lb BMI 22.8 Intake Visit Reasons: F/U US 09/18/23 Intake Note: follow up VV s/p US 09/18/23, Right LE worse than the left LE, still has swelling and pain. Has cluster on her pretibial Right LE Castings Drafter Required: Yes Castings Drafter Language: Education Department Chair Name: Ernie [id number] Information Interpreted: clinical only Accompanied by: Family/Other Allergies pickle Allergy (Mild, Uncoded 11/05/23 11:10) Unknown HPI F/U US 09/18/23 HPI Details Very pleasant 73-year-old female presents for follow-up regarding venous insufficiency. She had some discomfort and occasional swelling on the right pretibial surface. It appears that she may have even had a phlebitic episode over there. Overall it seems that it has resolved. She now presents for follow-up with venous insufficiency testing. 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) Patient Tobacco Use Status: Never used Tobacco Second Hand Smoke Exposure: No service: No Current occupational status: disabled Review of Systems Const All systems reviewed & are unremarkable except as noted in HPI and below Reports no additional complaints ENT Reports Normal hearing present Card Denies chest pain, Denies chest pain at rest, Denies chest pain with activity and Denies pedal edema Resp Denies cough GI Denies abdominal pain Musc Denies abnormal gait, Denies muscle cramps and Denies radiating pain into limb Skin/Breast Denies skin ulcer and Denies wounds Neuro Reports Normal hearing present and Denies abnormal gait Psych Reports no additional complaints Physical Exam Vital Signs: BMI result Body Mass Index 22.8 Const General: cooperative, healthy appearing and comfortable Orientation/consciousness: oriented to person, oriented to place and oriented to time HEENT Head: Yes normal to inspection Neck Neck: Yes normal visual inspection Carotids: no bruits Chest Chest palpation & inspection: normal inspection of the chest Resp Effort & Inspection: normal respiratory effort and able to speak in complete sentences Auscultation: clear to auscultation bilaterally, no crackles, no rales, no rhonchi and no wheezes Cardio Rate: regular rate Rhythm: regular rhythm Heart sounds: S1 normal heart sound present and S2 normal heart sound present Bruits: no carotid bruits Peripheral pulses: Peripheral pulses 2+ throughout GI Inspection: Yes normal to inspection Skin Wounds: no wounds Hair: normal Neuro General: oriented to person, oriented to place and oriented to time Cranial nerves: Yes CN's II-XII intact bilaterally and Yes Normal hearing present Cognition (Neuro): normal cognition Motor exam (neuro): 5/5 motor strength present throughout Extrem Other: venous exam: No significant superficial varicosities or spider telangiectasias, minimal edema General: No clubbing, No cyanosis and No edema Psych Appearance: grossly normal Mental Status: mental status grossly normal Speech and movement: Normal speech and movement present Results Reviewed Results Reviewed: Brief summary of venous insufficiency testing is as follows: right great saphenous vein: negative right small saphenous vein: negative right accessory vein: none present left great saphenous vein: negative left small saphenous vein: negative left accessory vein: none present Please note there is no evidence of any venous aneurysms or significant tortuosity Assessment & Plan Assessment & Plan (1) Varicose veins of right lower extremity with inflammation: Code(s): I83.11 - Varicose veins of right lower extremity with inflammation Plan: In short patient is negative for any significant venous insufficiency. She does have this pretibial surface area which appears to occasionally get irritated. I did request that she use warm compresses and nonsteroidal anti-inflammatories should this occur again. She will follow up with us on an as-needed basis. Thank you for allowing us to assist in her care. If there are any questions or concerns please do not hesitate to contact us. Coding Level of Care Code Est Pt Level 4 (69275) Diagnoses Varicose veins of right lower extremity with inflammation I83.11
== END 2023-11-05 11:19 | disposition home or self-care (01) ==
PROVIDERS: PCP Family Medicine; Visit Provider Surgery Vascular Surgery
DX: I83.11 Varicose veins of right lower extremity with inflammation (principal)
CPT/HCPCS: 99213

== ENCOUNTER → 2023-11-05 10:55 | Outpatient (BNVA) | payer OTHER, SELFPAY | PROVIDERS: PCP Family Medicine; Visit Provider Surgery Vascular Surgery | DX: I83.11 Varicose veins of right lower extremity with inflammation (principal) | CPT/HCPCS: 99212 ==

== ENCOUNTER 2023-11-25 10:43 | Outpatient (AMB) | payer OTHER, SELFPAY ==
[2023-11-25 10:51] VITALS: BP 162/76; PULSE 63; BMI 23.0
--- NOTE | 2023-11-25 10:51 | MHC.OFFVIS ---
Intake Vital Signs 11/25/23 10:51 Height 4 ft 11 in Weight 113 lb 12.136 oz BMI 23.0 BP 162/76 H Blood Pressure Location Lt brachial Position Sitting Pulse 63 Intake Visit Reasons: Discuss prep per Anny Intake Note: Patient here to discuss prep for Endoscopy and colonoscopy. Flight Teacher Required: Yes Accompanied by: sister Maria Esther Herron Allergies pickle Allergy (Mild, Uncoded 11/25/23 10:58) Unknown HPI Discuss prep per Anny HPI Details GERD (gastroesophageal reflux disease) Postprandial abdominal bloating Constipation Postprandial epigastric pain Plan Continue Dulcolax and Citrucel. Patient was also encouraged to increase fluid intake and activity to promote better bowel motility. Patient will start taking his omeprazole. Pantoprazole. Patient will take famotidine at bedtime to prevent morning epigastric discomfort. Discussed with patient avoiding dietary triggers as well as late night snacking. Staying upright for minimal 3 hours after meals discussed with patient. Patient will return in 2 months so we can discuss going for upper endoscopy and colonoscopy. Patient denies any cardiac or respiratory symptoms. Patient is on low-dose aspirin. Patient denies any issues with anesthesia in the past. No family history of colorectal cancer. Denies history of sleep apnea. Patient will call our office sooner if she will have any GI concerning symptoms. Patient and her WOOL BROKER are both agreeable to plan of care and verbalized understanding of instructions. They were given the opportunity to ask questions and all questions answered. Medications New esomeprazole magnesium (Nexium) 40 mg PO DAILY 30 caps 5RF K21.9 famotidine 40 mg PO BEDTIME 30 tabs 3RF K21.9 Discontinued pantoprazole take one tablet half an hour before breakfast Discontinued Reason: Doctor's Order 40 mg PO DAILY 90 tabs 2RF K21.9 TODAY'S VISIT Patient is here today for follow-up and to discuss going for colonoscopy. Patient reports that she has frequent postprandial epigastric discomfort and nausea. States that Nexium is not helping as much as pantoprazole did in the past. We will switch back to pantoprazole. She is moving her bowels better now that she is taking Dulcolax. Patient occasionally reports postprandial abdominal bloating. Patient never had colonoscopy in the past. States that she found out from her sister's that there is a family history of colorectal cancer, paternal grandfather and uncles had colon cancer. Patient denies any melena, hematochezia, unintentional weight loss or ribbon like stools. Reports occasional dyspepsia without dysphagia or odynophagia. Patient denies any issues with anesthesia in the past. Patient is on low-dose aspirin. No history of sleep apnea. 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) Patient Tobacco Use Status: Never used Tobacco Second Hand Smoke Exposure: No service: No Current occupational status: disabled Review of Systems Const Denies weight gain and Denies weight loss ENT Reports no additional complaints, Denies dysphagia and Denies odynophagia Card Reports no additional complaints Resp Reports no additional complaints GI Reports abdominal pain (epigastric), Denies belching, Denies melena, Denies bloating, Denies change in bowel habits, Denies dysphagia, Denies excessive flatus, Denies dyspepsia, Reports heartburn, Denies diarrhea, Denies loose stools, Denies nausea, Denies odynophagia and Denies vomiting Reports no additional complaints Musc Reports no additional complaints Neuro Reports no additional complaints Psych Reports no additional complaints Endo Reports no additional complaints Physical Exam Vital Signs: Last Vital Signs Pulse 63 11/25/23 10:51 BP 162/76 H 11/25/23 10:51 BMI result Body Mass Index 23.0 Const General: healthy appearing, no acute distress and well developed Nutritional Appearance: well nourished Orientation/consciousness: patient oriented x3 Resp Effort & Inspection: normal respiratory effort, able to speak in complete sentences, no tracheal deviation and symmetric chest movement Auscultation: clear to auscultation bilaterally Cardio Rate: regular rate GI Inspection: Yes normal to inspection and No distended Palpation (GI): Soft to palpation, not firm, nontender and No hepatosplenomegaly present Auscultation: normal bowel sounds General: Yes no CVA tenderness Back/Spine/Pelvis Back: no CVA tenderness Skin General skin exam: elasticity normal, turgor normal and dry skin Neuro General: patient oriented x3 Psych Appearance: grossly normal Mental Status: mental status grossly normal Assessment & Plan Assessment & Plan (1) GERD (gastroesophageal reflux disease): Code(s): K21.9 - Gastro-esophageal reflux disease without esophagitis Qualifiers: Esophagitis presence: esophagitis presence not specified Qualified Code(s): K21.9 - Gastro-esophageal reflux disease without esophagitis (2) Postprandial abdominal bloating: Code(s): R14.0 - Abdominal distension (gaseous) (3) Constipation: Code(s): K59.00 - Constipation, unspecified Qualifiers: Constipation type: slow transit constipation Qualified Code(s): K59.01 - Slow transit constipation (4) Postprandial epigastric pain: Code(s): R10.13 - Epigastric pain Plan Will switch Nexium to pantoprazole. Discussed with patient avoiding dietary triggers and late night snacking. Patient will be sent for upper endoscopy to rule out gastritis, duodenitis, esophagitis, gastric or peptic ulcers, Craig's, H pylori. What to discuss before during and after procedure discussed with patient. Patient will go for colonoscopy. Never had one before. Patient denies any cardiac or respiratory symptoms. Stressed the importance of good bowel prep and clear liquid diet before the procedure. I will see her after the procedure, sooner on as needed basis. Split MiraLax prep. Patient currently is taking Dulcolax tablets daily. Aware that she has to take 4 tablets day before procedure at noon time followed by split MiraLax prep. Both patient and her sister are agreeable to plan of care and verbalizes understanding of instructions. They were given the opportunity to ask questions and all questions answered. Thank you for allowing me to participate in her care Medications: New pantoprazole take one tablet half an hour before breakfast 40 mg PO DAILY 30 tabs 3RF K21.9 - Gastro-esophageal reflux disease without esophagitis polyethylene glycol 3350 (Miralax) As directed by gastroenterology department at [facility] 238 grams PO ONCE 238 grams 0RF Z12.11 - Encounter for screening for malignant neoplasm of colon Discontinued esomeprazole magnesium (Nexium) Discontinued Reason: Doctor's Order 40 mg PO DAILY 30 caps 5RF K21.9 - Gastro-esophageal reflux disease without esophagitis Coding Level of Care Code Est Pt Level 4 (23677) Diagnoses Gastroesophageal reflux disease, unspecified whether esophagitis present K21.9 Esophagitis presence: esophagitis presence not specified Postprandial abdominal bloating R14.0 Slow transit constipation K59.01 Constipation type: slow transit constipation Postprandial epigastric pain R10.13 Time Spent (min) 35 Comment 25 minutes spent with patient and additional 10 minutes spent reviewing her records
== END 2023-11-25 11:53 | disposition home or self-care (01) ==
PROVIDERS: PCP Family Medicine; Visit Provider Nurse Practitioner Family
DX: K21.9 Gastro-esophageal reflux disease without esophagitis (principal); R14.0 Abdominal distension (gaseous); K59.01 Slow transit constipation; R10.13 Epigastric pain
CPT/HCPCS: 99214

== ENCOUNTER → 2023-11-25 10:43 | Outpatient (BNVA) | payer OTHER, SELFPAY | PROVIDERS: PCP Family Medicine; Visit Provider Nurse Practitioner Family | DX: K21.9 Gastro-esophageal reflux disease without esophagitis (principal); K59.01 Slow transit constipation; R14.0 Abdominal distension (gaseous); R10.13 Epigastric pain | CPT/HCPCS: 99212 ==

== ENCOUNTER 2023-12-17 07:34 | Day surgery (SDC) | payer OTHER, SELFPAY ==
--- NOTE | 2023-12-15 14:14 | HO.ANESPROP2 ---
Documented by User: Angelica Xiong NP 12/15/23 14:16 HPI - Anesthesia Eval Consult details Narrative: 73yo F for Upper Endoscopy and Colonoscopy PMFSH Active Problems Active Problems: All Active Problems Varicose veins of right lower extremity with inflammation (Acute) Anemia (Acute) Hypertension (Acute) Past Medical History Medical History Osteoporosis Chronic arthritis Hypertension Anemia Cataracts, both eyes Family History Family History Mother Bone cancer Sister Breast cancer Maternal Uncle Colon cancer Maternal Grandfather Colon cancer Surgical History Surgical History Hx of eye surgery History of Social History Social History Household Members: Children Housing: Apartment Are you a primary healthcare facility administrator to a significant other at home: No Do you presently have visiting nurse or other home services: Yes (non clinical advisor) Patient Tobacco Use Status: Never used Tobacco Second Hand Smoke Exposure: No Use of substances other than those prescribed or required for medical reasons: No Are you DNR?: No Advance Directives: No Advance Directives Information Provided: Yes service: No Current occupational status: disabled Meds Allergies Allergy/AdvReac Type Severity Reaction Status Date / Time pickle Allergy Mild Angioedema Uncoded 12/17/23 08:28 Home Medications ?Medication ?Instructions ?Recorded ?Confirmed ?Last Taken ?Type ferrous gluconate 324 mg (37.5 mg 2 tab PO QAM 07/30/22 09/14/23 Unknown History iron) tablet rosuvastatin 40 mg tablet 1 tab QAM 07/30/22 09/14/23 Unknown History amlodipine 10 mg tablet 10 mg PO DAILY 06/09/23 09/14/23 Unknown History aspirin 81 mg tablet,delayed 81 mg PO DAILY 06/09/23 09/14/23 Unknown History release (Adult Aspirin Regimen) baclofen 10 mg tablet 10 mg PO DAILY 06/09/23 09/14/23 Unknown History ezetimibe 10 mg tablet 10 mg PO DAILY 06/09/23 09/14/23 Unknown History losartan 50 mg tablet 50 mg PO DAILY 06/09/23 09/14/23 12/17/23 History Exam Pertinent Lab Results Pertinent Lab Results: Laboratory Tests 09/14/23 11:10 WBC 5.4 Hgb 11.8 L Hct 36.8 L Plt Count 241 Sodium 143 Potassium 4.5 Chloride 109 H Carbon Dioxide 27 BUN 22 H Creatinine 0.79 Narrative Narrative: EKG 2022 Vent. Rate : 058 BPM Atrial Rate : 058 BPM P-R Int : 174 ms QRS Dur : 080 ms QT Int : 416 ms P-R-T Axes : 049 003 022 degrees QTc Int : 408 ms Sinus bradycardia Otherwise normal ECG No previous ECGs available Assessment and Plan Assessment Anesthesia Assessment: Chart Reviewed Documented by User: Kristofer Llamas MD 12/17/23 09:39 PMFSH Past Medical History Medical History Osteoporosis Chronic arthritis Hypertension Anemia Cataracts, both eyes Family History Family History Mother Bone cancer Sister Breast cancer Maternal Uncle Colon cancer Maternal Grandfather Colon cancer Family history of problems with anesthesia: No Surgical History Surgical History Hx of eye surgery History of History of Problems with Anesthesia: No Social History Social History Household Members: Children Housing: Apartment Are you a primary healthcare facility administrator to a significant other at home: No Do you presently have visiting nurse or other home services: Yes (non clinical advisor) Patient Tobacco Use Status: Never used Tobacco Second Hand Smoke Exposure: No Use of substances other than those prescribed or required for medical reasons: No Are you DNR?: No Advance Directives: No Advance Directives Information Provided: Yes service: No Current occupational status: disabled Meds Allergies Allergy/AdvReac Type Severity Reaction Status Date / Time pickle Allergy Mild Angioedema Uncoded 12/17/23 08:28 Home Medications ?Medication ?Instructions ?Recorded ?Confirmed ?Last Taken ?Type ferrous gluconate 324 mg (37.5 mg 2 tab PO QAM 07/30/22 09/14/23 Unknown History iron) tablet rosuvastatin 40 mg tablet 1 tab QAM 07/30/22 09/14/23 Unknown History amlodipine 10 mg tablet 10 mg PO DAILY 06/09/23 09/14/23 Unknown History aspirin 81 mg tablet,delayed 81 mg PO DAILY 06/09/23 09/14/23 Unknown History release (Adult Aspirin Regimen) baclofen 10 mg tablet 10 mg PO DAILY 06/09/23 09/14/23 Unknown History ezetimibe 10 mg tablet 10 mg PO DAILY 06/09/23 09/14/23 Unknown History losartan 50 mg tablet 50 mg PO DAILY 06/09/23 09/14/23 12/17/23 History Exam Airway Mallampati Class: II TM Dist: >3cm Neck ROM: Full Loose/Missing/Broken Teeth: Yes, No, Upper and Lower Heart: ok Lungs: ok Other: loose lower front left tooth Assessment and Plan Assessment Anesthesia Assessment: Anesthesia Plan Discussed Final Anesthetic Review Family History of Problems with Anesthesia: No History of Problems with Anesthesia: No ASA Class: III Final Preanesthetic Review: No Changes in Pt Med Stat, Meds/Allgs Chart Reviewed, Consent Obtained/Reviewed and Anes Risks/Benef Reviewed Patient Risk: Intermediate Procedure Risk: Intermediate Anesthetic Plan Anesthetic Plan: Agree w/ Assess. and Plan and TIVA Disposition: Standard PACU
[2023-12-17 08:24] VITALS: BMI 22.3
[2023-12-17 08:39] VITALS: BP 152/69; PULSE 63; RESP 16; TEMP 36.5; O2SAT 98
[2023-12-17] MEDS: Lactated Ringers 1,000 ML 100 ML IVCONT (08:48)
--- NOTE | 2023-12-17 08:51 | MHC.SHP ---
Pre-Procedural Eval Section A - 24 Hr Update-Section A only Date of Service: 12/17/23 The patient is an INPATIENT: No The patient has been examined within 24 hours of the surgical procedure. The History & Physical has been completed within 30 days and I have reviewed it.: Yes Section B - Complete if H&P > 30 days Chief Complaint: constipation,gerd, Allergies: Allergies Allergy/AdvReac Type Severity Reaction Status Date / Time pickle Allergy Mild Angioedema Uncoded 12/17/23 08:28 Plan Diagnosis/Plan: Unchanged I have reviewed the history and physical and performed a pertinent physical examination on my patient. No changes have occurred unless specified. Time Spent With Patient Time: Total time managing care of this patient today ____ minutes.
[2023-12-17 10:17] VITALS: BP 89/51; PULSE 70; RESP 14; TEMP 36.4; O2SAT 96
[2023-12-17 10:32] VITALS: BP 146/72; PULSE 64; RESP 16; O2SAT 98
[2023-12-17 10:51] VITALS: BP 156/77; PULSE 76; RESP 17; TEMP 36.4; O2SAT 99
--- NOTE | 2023-12-17 11:22 | P.OPN-COLO_ITS ---
Colonoscopy Operative Note Operative Note Date of Service: 12/17/23 Narrative: Procedure: Upper endoscopy and colonoscopy Indication: L sided abd pain, abnormal CT scan Endoscopist: Sis Norris MD Anesthesia Provider: Dr Kristofer Llamas Anesthesia type: MAC Instrument: [id number] and [id number] EGD Procedure:?? The procedure, indications, preparation and potential complications were reviewed with the patient, who indicated understanding and gave written informed consent to proceed. A conveyor attendant assisted with the encounter. Physical exam was performed. The endoscope was introduced through the mouth, and advanced to the 2nd part of the duodenum. The mucosa was carefully examined on slow withdrawal of the endoscope. The patient tolerated the procedure well. There were no immediate complications.? EGD Findings:? * Esophagus:? Normal esophageal mucosa. The Z-line was at 31 cm. There was a medium sized hiatal hernia with diaphragmatic pinch at 35 cm. * Stomach:? Normal gastric mucosa was noted. Retroflexion was performed in the cardia that showed Hill grade II hiatal hernia. Cold forceps biopsies were taken to r/o H Pylori. * Duodenum:? Duodenal mucosa was normal to the extent of visualisation. Cold forceps biopsies were taken from the duodenal bulb and 2nd portion of the duodenum to rule out sprue. Colonoscopy Procedure:? The patient was then turned for the colonoscopy. A digital rectal exam was performed which was normal.? A distal attachment cap was affixed to the tip of the scope and the colonoscope was then inserted through the anus and advanced through the colon and advanced to the cecum at 80 cm and terminal ileum.? Appendiceal orifice and ileocecal valve were identified. Mucosa was carefully examined under high definition white light as the instrument was slowly withdrawn in a retrograde panoramic fashion. Retroflexion was performed in ascending colon and rectum. The procedure was not difficult. The quality of the prep was BBPS: 2+2+2 = adequate Withdrawal time 11 minutes Limitations: No limitations Findings: Mucosa: Normal colon and terminal ileum mucosa. Protruding lesions: * Two sessile polyps of size 4-6 mm were noted in the transverse colon. Cold snare polypectomy was performed. The polyps were completely removed and retrieved. * Medium internal hemorrhoids without stigmata of recent bleeding. Impression: 1. Normal esophagus 2. Hiatal hernia 3. Normal gastric mucosa (biopsy) 4. Normal duodenum (biopsy) 5. Normal colon and terminal ileum mucosa (biopsy) 6. 2 polyps removed 7. Internal and external hemorrhoids Recommendations:?? * Follow-up path results * Repeat colonoscopy in 5-7 years if patient in good health
== END 2023-12-17 11:09 | disposition home or self-care (01) ==
PROVIDERS: PCP Family Medicine; Visit Provider Internal Medicine
PROC: (CPT 45385; principal; 2023-12-17 09:20)
DX: R10.9 Unspecified abdominal pain (principal); K59.01 Slow transit constipation; D12.3 Benign neoplasm of transverse colon; K64.8 Other hemorrhoids; K64.4 Residual hemorrhoidal skin tags; K21.9 Gastro-esophageal reflux disease without esophagitis; K44.9 Diaphragmatic hernia without obstruction or gangrene; I10 Essential (primary) hypertension; Z79.82 Long term (current) use of aspirin
CPT/HCPCS: 45385; 43239; 88305; 88313; 88342; J2704

== ENCOUNTER → 2023-12-17 07:34 | Outpatient (BNV) | payer OTHER, SELFPAY | PROVIDERS: PCP Family Medicine; Visit Provider Internal Medicine | DX: K21.9 Gastro-esophageal reflux disease without esophagitis (principal); R93.3 Abnormal findings on diagnostic imaging of other parts of digestive tract; D12.3 Benign neoplasm of transverse colon; K64.8 Other hemorrhoids | CPT/HCPCS: 43239; 45385 ==

== ENCOUNTER 2023-12-30 09:15 | Outpatient (AMB) | payer OTHER, SELFPAY ==
--- NOTE | 2023-12-30 09:20 | MHC.OFFVIS ---
Vital Signs 12/30/23 09:27 Height 4 ft 11 in Weight 111 lb 8.862 oz BMI 22.5 BP 154/71 H Blood Pressure Location Lt brachial Pulse 58 Intake Visit Reasons: s/p egd/colon Intake Note: Patient is seen in office for post op assessment post EGD and Colonoscopy. Pt c/o: denies any concerns post surgery, here for results Cutter Aluminum Sheet Required: Yes Cutter Aluminum Sheet Language: Bhutanese Information Interpreted: non-clinical & clinical Accompanied by: Daughter Allergies pickle Allergy (Mild, Uncoded 12/17/23 08:28) Angioedema HPI HPI s/p egd/colon: Details: LAST VISIT: GERD (gastroesophageal reflux disease) Postprandial abdominal bloating Constipation Postprandial epigastric pain Plan Will switch Nexium to pantoprazole. Discussed with patient avoiding dietary triggers and late night snacking. Patient will be sent for upper endoscopy to rule out gastritis, duodenitis, esophagitis, gastric or peptic ulcers, Craig's, H pylori. What to discuss before during and after procedure discussed with patient. Patient will go for colonoscopy. Never had one before. Patient denies any cardiac or respiratory symptoms. Stressed the importance of good bowel prep and clear liquid diet before the procedure. I will see her after the procedure, sooner on as needed basis. Split MiraLax prep. Patient currently is taking Dulcolax tablets daily. Aware that she has to take 4 tablets day before procedure at noon time followed by split MiraLax prep. Both patient and her sister are agreeable to plan of care and verbalizes understanding of instructions. They were given the opportunity to ask questions and all questions answered. ? Thank you for allowing me to participate in her care Medications New pantoprazole take one tablet half an hour before breakfast 40 mg PO DAILY 30 tabs 3RF K21.9 polyethylene glycol 3350 (Miralax) As directed by gastroenterology department at [facility] 238 grams PO ONCE 238 grams 0RF Z12.11 Discontinued esomeprazole magnesium (Nexium) Discontinued Reason: Doctor's Order 40 mg PO DAILY 30 caps 5RF K21.9 UPPER ENDOSCOPY AND COLONOSCOPY EGD Findings:? Esophagus:? Normal esophageal mucosa. The Z-line was at 31 cm. There was a medium sized hiatal hernia with diaphragmatic pinch at 35 cm. Stomach:? Normal gastric mucosa was noted. Retroflexion was performed in the cardia that showed Hill grade II hiatal hernia. Cold forceps biopsies were taken to r/o H Pylori. Duodenum:? Duodenal mucosa was normal to the extent of visualisation. Cold forceps biopsies were taken from the duodenal bulb and 2nd portion of the duodenum to rule out sprue. Colonoscopy Findings: Mucosa: Normal colon and terminal ileum mucosa. Protruding lesions: Two sessile polyps of size 4-6 mm were noted in the transverse colon. Cold snare polypectomy was performed. The polyps were completely removed and retrieved. Medium internal hemorrhoids without stigmata of recent bleeding. Impression: 1. Normal esophagus 2. Hiatal hernia 3. Normal gastric mucosa (biopsy) 4. Normal duodenum (biopsy) 5. Normal colon and terminal ileum mucosa (biopsy) 6. 2 polyps removed 7. Internal and external hemorrhoids Recommendations:?? Follow-up path results Repeat colonoscopy in 5-7 years if patient in good health PATHOLOGY RESULTS Diagnosis A. Duodenum, biopsy: Duodenal mucosa with preserved villous architecture and increased intraepithelial lymphocytes (see comment). B. Stomach, random, biopsy: Gastric antral and body mucosa with mild chronic inactive gastritis; negative for Helicobacter pylori, intestinal metaplasia and dysplasia. C. Colon, transverse, polypectomy x2: Tubular adenoma (2); negative for high-grade dysplasia. COMMENT (A): These findings raise the possibility of celiac disease; however other pathologic processes, including H. pylori gastritis, peptic duodenitis, food allergies other than celiac disease, tropical sprue, viral enteritis, injury caused by drugs, autoimmune enteropathy, immunodeficiencies and Crohn's disease can induce intraepithelial lymphocytosis with or without associated architectural changes. In many cases no definite cause is identified. Clinical and serological correlation is recommended TODAY'S VISIT Patient is here today for follow-up and to discuss upper endoscopy and colonoscopy results. Patient is accompanied by her daughter. Patient denies any ill effects from the prep, anesthesia or procedure itself. Patient reports to be feeling well. Would like to switch back to Nexium. Patient reports that she is taking Dulcolax tablets every evening and is going to the bathroom without any issues. Patient denies any abdominal pain or discomfort. Denies any dyspepsia, dysphagia or odynophagia. Denies melena, hematochezia. 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) Patient Tobacco Use Status: Never used Tobacco Second Hand Smoke Exposure: No service: No Current occupational status: disabled Review of Systems Const Denies weight gain and Denies weight loss ENT Reports no additional complaints, Denies dysphagia and Denies odynophagia Card Reports no additional complaints Resp Reports no additional complaints GI Denies abdominal pain, Denies belching, Denies melena, Denies bloating, Denies change in bowel habits, Denies dysphagia, Denies excessive flatus, Denies dyspepsia, Reports heartburn, Denies diarrhea, Denies loose stools, Denies nausea, Denies odynophagia and Denies vomiting Reports no additional complaints Musc Reports no additional complaints Neuro Reports no additional complaints Psych Reports no additional complaints Endo Reports no additional complaints Physical Exam Vital Signs: Last Vital Signs Pulse 58 12/30/23 09:27 BP 154/71 H 12/30/23 09:27 BMI result Body Mass Index 22.5 Const General: healthy appearing, no acute distress and well developed Nutritional Appearance: well nourished Orientation/consciousness: patient oriented x3 Resp Effort & Inspection: normal respiratory effort, able to speak in complete sentences, no tracheal deviation and symmetric chest movement Auscultation: clear to auscultation bilaterally Cardio Rate: regular rate GI Inspection: Yes normal to inspection and No distended Palpation (GI): Soft to palpation, not firm, nontender and No hepatosplenomegaly present Auscultation: normal bowel sounds General: Yes no CVA tenderness Back/Spine/Pelvis Back: no CVA tenderness Skin General skin exam: elasticity normal, turgor normal and dry skin Neuro General: patient oriented x3 Psych Appearance: grossly normal Mental Status: mental status grossly normal Assessment & Plan Assessment & Plan (1) Tubular adenoma of colon: Code(s): D12.6 - Benign neoplasm of colon, unspecified Category: Medical (2) GERD (gastroesophageal reflux disease): Code(s): K21.9 - Gastro-esophageal reflux disease without esophagitis Qualifiers: Esophagitis presence: esophagitis presence not specified Qualified Code(s): K21.9 - Gastro-esophageal reflux disease without esophagitis (3) Postprandial abdominal bloating: Code(s): R14.0 - Abdominal distension (gaseous) (4) Constipation: Code(s): K59.00 - Constipation, unspecified Qualifiers: Constipation type: slow transit constipation Qualified Code(s): K59.01 - Slow transit constipation (5) Postprandial epigastric pain: Code(s): R10.13 - Epigastric pain Plan Start Nexium daily. Avoid dietary triggers and late night snacking staying upright for minimum 3 hours after meals discussed with patient. Patient can continue taking famotidine at bedtime. Continue taking Dulcolax tablets daily. Increase fluid intake and activity to promote better bowel motility. Patient and her daughter are agreeable to plan of care and verbalizes understanding of instructions. They were given the opportunity to ask questions and all questions answered. Colonoscopy in 5 years, sooner if clinically necessary. Thank you for allowing me to participate in her care Medications: New esomeprazole magnesium (Nexium) 40 mg PO DAILY 90 caps 3RF K21.9 - Gastro-esophageal reflux disease without esophagitis Discontinued pantoprazole take one tablet half an hour before breakfast Discontinued Reason: Doctor's Order 40 mg PO DAILY 30 tabs 3RF K21.9 - Gastro-esophageal reflux disease without esophagitis Coding Level of Care Code Est Pt Level 3 (58940) Diagnoses Tubular adenoma of colon D12.6 Gastroesophageal reflux disease, unspecified whether esophagitis present K21.9 Esophagitis presence: esophagitis presence not specified Postprandial abdominal bloating R14.0 Slow transit constipation K59.01 Constipation type: slow transit constipation Postprandial epigastric pain R10.13 Time Spent (min) 30 Comment 20 minutes spent with patient and additional 10 minutes spent reviewing her records
[2023-12-30 09:27] VITALS: BP 154/71; PULSE 58; BMI 22.5
== END 2023-12-30 09:45 | disposition home or self-care (01) ==
PROVIDERS: PCP Family Medicine; Visit Provider Nurse Practitioner Family
DX: D12.6 Benign neoplasm of colon, unspecified (principal); K21.9 Gastro-esophageal reflux disease without esophagitis; R14.0 Abdominal distension (gaseous); K59.01 Slow transit constipation; R10.13 Epigastric pain
CPT/HCPCS: 99213

== ENCOUNTER → 2023-12-30 09:15 | Outpatient (BNVA) | payer OTHER, SELFPAY | PROVIDERS: PCP Family Medicine; Visit Provider Nurse Practitioner Family | DX: K21.9 Gastro-esophageal reflux disease without esophagitis (principal); R14.0 Abdominal distension (gaseous); K59.01 Slow transit constipation; R10.13 Epigastric pain; D12.6 Benign neoplasm of colon, unspecified | CPT/HCPCS: 99212 ==

== ENCOUNTER 2024-01-07 09:27 | Outpatient (REF) | payer OTHER, SELFPAY ==
[2024-01-07 14:40] LABS: MANUAL DIFF FLAG NO
[2024-01-07 14:50] LABS: Basophils Percent Auto 0.7 % (0-2); Eosinophils Absolute Auto 0.2 X10*3/uL (0.0-0.4); Eosinophils Percent Auto 3.5 % (0-4); Hematocrit 35.6 % (37.0-47.0); Hemoglobin 11.4 g/dl (12.0-16.0); Imm Gran Abs Auto 0.01 X10*3/uL (0.00-0.03); Imm Gran Pct Auto 0.2 % (0.0-0.4); Lymphocytes Percent Auto 36.6 % (20-40); Mean Corpuscular Hemoglobin 29.3 pg (27.0-33.0); Mean Corpuscular Volume 91.5 fL (80.0-98.0); Mean Platelet Volume 11.7 fL (9.4-12.3); Monocytes Absolute Auto 0.4 X10*3/uL (0.1-1.2); Monocytes Percent Auto 6.5 % (2-11); Neutrophils Absolute Auto 2.8 x10*3/uL (2.0-8.3); Neutrophils Percent Auto 52.5 % (45-73); Platelet Count 260 X10*3/uL (160-400); Red Blood Count 3.89 X10*6/uL (4.20-5.50); Red Cell Distribution Width 12.9 % (11.0-16.0); White Blood Count 5.4 X10*3/uL (4.8-10.8)
[2024-01-07 15:11] LABS: Alanine Aminotransferase 9 U/L (0-31); Albumin Level 4.1 g/dL (3.5-5.0); Alkaline Phosphatase 68 U/L (39-117); Anion Gap 11 (12-20); Aspartate Amino Transferase 14 U/L (5-31); Bilirubin Total 0.5 mg/dL (0.0-1.0); Blood Urea Nitrogen 16 mg/dL (9-16); Calcium 9.5 mg/dL (8.4-10.2); Carbon Dioxide 26 mmol/L (22-29); Chloride 110 mmol/L (96-108); Cholesterol 267 mg/dL (<200); Estimated Glomerular Filt Rate > 60; Glucose Random 90 mg/dL (60-115); HDL Cholesterol 69 mg/dL (>40); LDL Cholesterol Calculated 181 mg/dL (<100); Potassium 3.9 mmol/L (3.3-5.1); Sodium 143 mmol/L (135-145); Total Protein 7.2 g/dL (6.5-8.0); Triglycerides 88 mg/dL (<150)
[2024-01-07 15:31] LABS: TSH reflex Free T4 1.84 uIU/mL (0.32-4.0)
[2024-01-11 10:48] LABS: Ceruloplasmin 28 mg/dL (14-48)
== END 2024-01-07 09:28 | disposition home or self-care (01) ==
LOC: HO.CHCLDS 09:27
PROVIDERS: Visit Provider Family Medicine
DX: R25.1 Tremor, unspecified (principal); E78.2 Mixed hyperlipidemia; I10 Essential (primary) hypertension
CPT/HCPCS: 36415; 80053; 80061; 82390; 84443; 85025

== ENCOUNTER → 2024-02-05 15:15 | Outpatient (BNV) | payer OTHER, SELFPAY | PROVIDERS: PCP Family Medicine; Visit Provider Radiology Diagnostic Radiology | DX: Z12.31 Encounter for screening mammogram for malignant neoplasm of breast (principal) | CPT/HCPCS: 77063; 77067 ==

== ENCOUNTER 2024-02-05 15:29 | Outpatient (REF) | payer OTHER, SELFPAY ==
--- NOTE | ~2024-02-05 | MM_ITS ---
EXAMINATION: MM SCREENING DIGITAL BREAST TOMOSYNTHESIS, BILATERAL CLINICAL INFORMATION: Screening. Asymptomatic. COMPARISON: Mammography: This is a baseline mammogram TECHNIQUE: Digital breast tomosynthesis is performed in both the craniocaudal and mediolateral oblique views along with computer-aided detection (CAD). Synthesized 2D images are generated from the tomosynthesis. FINDINGS: The breasts are heterogeneously dense, which may obscure small masses (ACR BI-RADS breast composition Category c). There are no significant masses, abnormal calcifications, or other abnormalities. MM/MM tomosynthesis screening BI IMPRESSION: No mammographic evidence of malignancy. ASSESSMENT: BI-RADS BI-RADS 1 - Negative RECOMMENDATION: Routine annual mammography screening. 1 year F/U This examination should not preclude the clinical evaluation of a suspicious palpable abnormality. This patient's information was entered into a reminder system with a target due date for their next mammogram.
== END 2024-02-05 15:30 | disposition home or self-care (01) ==
LOC: HO.MAMMO 15:29
PROVIDERS: PCP Family Medicine; Visit Provider Family Medicine
DX: Z12.31 Encounter for screening mammogram for malignant neoplasm of breast (principal)
CPT/HCPCS: 77063; 77067

== ENCOUNTER 2024-02-16 09:00 | Outpatient (AMB) | payer OTHER, SELFPAY ==
--- NOTE | 2024-02-16 09:01 | MHC.OFFVIS ---
Vital Signs 02/16/24 09:04 Height 4 ft 11 in Weight 110 lb 3.698 oz BMI 22.3 BP 160/72 H Blood Pressure Location Lt brachial Position Sitting Pulse 58 Intake Visit Reasons: 2 month follow up Intake Note: Massiel presents in the office as a 2 month follow up. CC: She states that she does not have concerns today. Curator Of Collections Required: Yes Curator Of Collections Name: Daughter Allergies pickle Allergy (Mild, Uncoded 02/16/24 09:01) Angioedema HPI HPI 2 month follow up: Details: LAST VISIT: Tubular adenoma of colon GERD (gastroesophageal reflux disease) Postprandial abdominal bloating Constipation Postprandial epigastric pain Plan Start Nexium daily. Avoid dietary triggers and late night snacking staying upright for minimum 3 hours after meals discussed with patient. Patient can continue taking famotidine at bedtime. Continue taking Dulcolax tablets daily. Increase fluid intake and activity to promote better bowel motility. Patient and her daughter are agreeable to plan of care and verbalizes understanding of instructions. They were given the opportunity to ask questions and all questions answered. Colonoscopy in 5 years, sooner if clinically necessary. ? Thank you for allowing me to participate in her care Medications New esomeprazole magnesium (Nexium) 40 mg PO DAILY 90 caps 3RF K21.9 Discontinued pantoprazole take one tablet half an hour before breakfast Discontinued Reason: Doctor's Order 40 mg PO DAILY 30 tabs 3RF K21.9 TODAY'S VISIT: Patient is here today for follow-up. Patient is accompanied by her daughter who is going to translate for us per patient's request. Refusal of interpretive services signed by both patient her daughter and myself. Patient reports that she has been feeling well since last procedure. Since starting her on Nexium patient states that she no longer is experiences postprandial epigastric pain and reflux. Her symptoms are controlled throughout the day after meals as well as at night time. Able to eat better and more variety of food. Patient no longer has epigastric pain or discomfort. Reports that she is moving her bowels without any issues. Patient is taking Dulcolax at bedtime and able to move her bowels without any issues. Patient does not eat late at night. Patient denies any melena, hematochezia. Patient denies any GI concerning symptoms today. 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) Patient Tobacco Use Status: Never used Tobacco Second Hand Smoke Exposure: No service: No Current occupational status: disabled Review of Systems Const Denies weight gain and Denies weight loss ENT Reports no additional complaints, Denies dysphagia and Denies odynophagia Card Reports no additional complaints Resp Reports no additional complaints GI Denies abdominal pain, Denies belching, Denies melena, Denies bloating, Denies change in bowel habits, Denies dysphagia, Denies excessive flatus, Denies dyspepsia, Denies heartburn, Denies diarrhea, Denies loose stools, Denies nausea, Denies odynophagia and Denies vomiting Musc Reports no additional complaints Neuro Reports no additional complaints Psych Reports no additional complaints Endo Reports no additional complaints Physical Exam Vital Signs: Last Vital Signs Pulse 58 02/16/24 09:04 BP 160/72 H 02/16/24 09:04 BMI result Body Mass Index 22.3 Const General: healthy appearing, no acute distress and well developed Nutritional Appearance: well nourished Orientation/consciousness: patient oriented x3 Resp Effort & Inspection: normal respiratory effort, able to speak in complete sentences, no tracheal deviation and symmetric chest movement Auscultation: clear to auscultation bilaterally Cardio Rate: regular rate GI Inspection: Yes normal to inspection and No distended Palpation (GI): Soft to palpation, not firm, nontender and No hepatosplenomegaly present Auscultation: normal bowel sounds General: Yes no CVA tenderness Back/Spine/Pelvis Back: no CVA tenderness Skin General skin exam: elasticity normal, turgor normal and dry skin Neuro General: patient oriented x3 Psych Appearance: grossly normal Mental Status: mental status grossly normal Assessment & Plan Assessment & Plan (1) GERD (gastroesophageal reflux disease): Code(s): K21.9 - Gastro-esophageal reflux disease without esophagitis Qualifiers: Esophagitis presence: esophagitis presence not specified Qualified Code(s): K21.9 - Gastro-esophageal reflux disease without esophagitis (2) Postprandial abdominal bloating: Code(s): R14.0 - Abdominal distension (gaseous) (3) Constipation: Code(s): K59.00 - Constipation, unspecified Qualifiers: Constipation type: slow transit constipation Qualified Code(s): K59.01 - Slow transit constipation (4) Postprandial epigastric pain: Code(s): R10.13 - Epigastric pain Plan Continue Nexium and avoiding dietary triggers and late night snacking. Staying upright for minimum 3 hours stressed. Continue Dulcolax daily. Increase fluid intake and activity to promote better bowel motility. I will see patient in 6 months, sooner on as needed basis. She is agreeable to this plan and verbalizes understanding of instructions. She was given the opportunity to ask questions and all questions answered. Thank you for allowing me to participate in her care Coding Level of Care Code Est Pt Level 3 (87947) Diagnoses Gastroesophageal reflux disease, unspecified whether esophagitis present K21.9 Esophagitis presence: esophagitis presence not specified Postprandial abdominal bloating R14.0 Slow transit constipation K59.01 Constipation type: slow transit constipation Postprandial epigastric pain R10.13 Time Spent (min) 25 Comment 15 minutes spent with patient and additional 10 minutes spent reviewing her records
[2024-02-16 09:04] VITALS: BP 160/72; PULSE 58; BMI 22.3
== END 2024-02-16 09:33 | disposition home or self-care (01) ==
PROVIDERS: PCP Family Medicine; Visit Provider Nurse Practitioner Family
DX: K21.9 Gastro-esophageal reflux disease without esophagitis (principal); R14.0 Abdominal distension (gaseous); K59.01 Slow transit constipation; R10.13 Epigastric pain
CPT/HCPCS: 99213

== ENCOUNTER → 2024-02-16 09:00 | Outpatient (BNVA) | payer OTHER, SELFPAY | PROVIDERS: PCP Family Medicine; Visit Provider Nurse Practitioner Family | DX: K21.9 Gastro-esophageal reflux disease without esophagitis (principal); K59.01 Slow transit constipation; R14.0 Abdominal distension (gaseous); R10.13 Epigastric pain | CPT/HCPCS: 99212 ==

== ENCOUNTER 2024-03-01 16:38 | Outpatient (REF) | payer OTHER, SELFPAY ==
--- NOTE | ~2024-03-01 | MR_ITS ---
EXAMINATION: MR BRAIN WITHOUT CONTRAST CLINICAL INFORMATION: Tremors COMPARISON: None available. TECHNIQUE: MRI of the brain was obtained using routine sequences without contrast. FINDINGS: No acute intracranial hemorrhage or infarct. Scattered and confluent periventricular and deep white matter T2/FLAIR hyperintensities, nonspecific however commonly seen with small vessel ischemic disease. There is a focus of susceptibility artifact in the right cerebellar hemisphere which may reflect chronic microhemorrhage versus a cavernoma. No midline shift or hydrocephalus. No acute extra-axial fluid collections. The osseous structures are unremarkable. The pituitary gland, pineal gland and remaining midline structures are unremarkable. Sequelae of bilateral lens replacement. Otherwise, no acute orbital pathology. The paranasal sinuses and mastoid air cells are clear. MR/MR head/brain wo con IMPRESSION: 1. No acute intracranial abnormalities. 2. Chronic microangiopathy. Electronically signed by: Dung Kothari MD 03/31/2024 01:38 PM EDT
== END 2024-03-01 16:39 | disposition home or self-care (01) ==
LOC: HO.MRI 16:38
PROVIDERS: PCP Family Medicine; Visit Provider Family Medicine
DX: R25.1 Tremor, unspecified (principal)
CPT/HCPCS: 70551

== ENCOUNTER 2024-05-18 08:23 | Outpatient (REF) | payer OTHER, SELFPAY ==
--- NOTE | ~2024-05-18 | MM_ITS ---
EXAMINATION: BONE DENSITOMETRY CLINICAL INDICATION: Postmenopausal. COMPARISON: This is the patient's baseline examination. TECHNIQUE: Using a [employer] DXA System (software version: 13.1) manufactured by [employer], dual-energy x-ray absorptiometry was performed of the lumbar spine and left hip. The images are of good technical quality. Summary results are attached. FINDINGS: LEFT FEMUR, NECK: BMD 0.620 g/cm2, Z-score -0.8, T-score -3.0, osteoporosis. LEFT FEMUR, TOTAL: BMD 0.680 g/cm2, Z-score -0.6, T-score -2.6, osteoporosis. AP SPINE L1-L4: BMD 0.806 g/cm2, Z-score -0.9, T-score -3.1, osteoporosis. IDENTIFIED RISK FACTORS: Menopause, history of fracture (adult), osteoporosis, recurrent falls. HISTORY OF FRACTURE: Forearm. MEDICATIONS: Vitamin D. MM/XR DEXA axial skeleton IMPRESSION: 1. DIAGNOSIS: Severe osteoporosis based on the lowest T-score value of -3.0 in the lumbar spine and history of fracture of the forearm applying World Health Organization criteria. 2. 10-YEAR FRACTURE RISK PREDICTION, FRAX: According to the guidelines, FRAX calculation should only be performed on patients in the osteopenia bone density category. Therefore, FRAX was not performed on this patient. 3. Treatment Recommendations: NOF guidelines recommend consideration for treatment in postmenopausal women and men age 50 and older presenting with the following: -A hip or vertebral (clinical or morphometric) fracture. -T-score less than or equal to -2.5 at the femoral neck or spine after appropriate evaluation to exclude secondary causes. -Low bone mass at the hip or spine and a 10-year fracture probability by FRAX of greater than or equal to 3% for hip fracture or greater than or equal to 20% for major osteoporotic fracture based on the [place] adapted WHO algorithm. 4. Other Recommendations: All treatment decisions require clinical judgment and consideration of individual patient factors, including patient preferences, comorbidities, previous drug use, risk factors not captured in the FRAX model (e.g. frailty, falls, vitamin D deficiency, increased bone turnover, interval significant decline in bone density) and possible under or overestimation of fracture risk by FRAX. Additional medical evaluation for secondary cause of low bone mineral density may be appropriate. FUTURE SCAN RECOMMENDATION: People with diagnosed cases of osteoporosis or at high risk for fracture should have regular bone mineral density tests. For patients eligible for Medicare, routine testing is allowed once every 2 years. The testing frequency can be increased to one year for patients who have rapidly progressing disease, those who are receiving or discontinuing medical therapy to restore bone mass, or have additional risk factors. Electronically signed by: Yohan Priest MD 05/18/2024 04:29 PM EDT
== END 2024-05-18 08:24 | disposition home or self-care (01) ==
LOC: HO.MAMMO 08:23
PROVIDERS: PCP Family Medicine; Visit Provider Family Medicine
DX: Z13.820 Encounter for screening for osteoporosis (principal); Z78.0 Asymptomatic menopausal state
CPT/HCPCS: 77080

== ENCOUNTER 2024-07-27 09:14 | Outpatient (REF) | payer OTHER, SELFPAY ==
[2024-07-27 10:11] LABS: MANUAL DIFF FLAG NO
[2024-07-27 10:28] LABS: Basophils Percent Auto 0.8 % (0-2); Eosinophils Absolute Auto 0.2 X10*3/uL (0.0-0.4); Eosinophils Percent Auto 3.2 % (0-4); Hemoglobin 11.4 g/dl (12.0-16.0); Imm Gran Abs Auto 0.01 X10*3/uL (0.00-0.03); Imm Gran Pct Auto 0.2 % (0.0-0.4); Lymphocytes Absolute Auto 2.2 X10*3/uL (1.2-4.9); Lymphocytes Percent Auto 44.2 % (20-40); Mean Corpuscular HGB Conc 32.6 g/dl (31.0-35.0); Mean Corpuscular Hemoglobin 29.3 pg (27.0-33.0); Mean Platelet Volume 11.2 fL (9.4-12.3); Monocytes Absolute Auto 0.3 X10*3/uL (0.1-1.2); Neutrophils Absolute Auto 2.3 x10*3/uL (2.0-8.3); Neutrophils Percent Auto 45.6 % (45-73); Platelet Count 245 X10*3/uL (160-400); Red Blood Count 3.89 X10*6/uL (4.20-5.50); Red Cell Distribution Width 12.9 % (11.0-16.0)
[2024-07-27 10:34] LABS: Prothrombin Time 11.4 SEC (10.9-12.4)
[2024-07-27 10:36] LABS: Partial Thromboplastin Time 29.3 SEC (26.0-36.8)
[2024-07-27 10:46] LABS: Alanine Aminotransferase 17 U/L (0-31); Alkaline Phosphatase 65 U/L (39-117); Anion Gap 6 (12-20); Aspartate Amino Transferase 20 U/L (5-31); Bilirubin Total 0.5 mg/dL (0.0-1.0); Blood Urea Nitrogen 19 mg/dL (9-16); Calcium 8.5 mg/dL (8.4-10.2); Carbon Dioxide 29 mmol/L (22-29); Chloride 110 mmol/L (96-108); Estimated Glomerular Filt Rate > 60; Glucose Random 94 mg/dL (60-115); Potassium 3.6 mmol/L (3.3-5.1); Sodium 141 mmol/L (135-145); Total Protein 7.2 g/dL (6.5-8.0)
== END 2024-07-27 09:15 | disposition home or self-care (01) ==
LOC: HO.CHCLDS 09:14
PROVIDERS: Visit Provider Internal Medicine
DX: I10 Essential (primary) hypertension (principal)
CPT/HCPCS: 36415; 80053; 85025; 85610; 85730

== ENCOUNTER 2024-08-17 08:30 | Outpatient (AMB) | payer OTHER, SELFPAY ==
[2024-08-17 08:31] VITALS: BP 172/84; PULSE 62; O2SAT 96; BMI 22.9
--- NOTE | 2024-08-17 08:31 | A.OFFVIS_ITS ---
Vital Signs 08/17/24 08:31 Height 4 ft 11 in Weight 113 lb 5.082 oz BMI 22.9 BP 172/84 H Blood Pressure Location Lt brachial Position Sitting Pulse 62 Pulse Source Pulse Oximeter Pulse Oximetry (%) 96 Oxygen Delivery Method Room Air Comment Pt reports taking BP meds @ 0700 this AM Intake Visit Reasons: 6 mnth follow up Intake Note: ESTABLISHED PATIENT Reason; 6 month fu Changes/concerns? Pt still experiencing abd pain and GERD sx. Would like to discuss alt options. Director Of Oncology Required: Yes Director Of Oncology Services: Director Of Oncology Present Director Of Oncology Name: [id number] Kay Information Interpreted: non-clinical & clinical Accompanied by: Family/Other Allergies pickle Allergy (Mild, Uncoded 03/14/24 09:10) Angioedema HPI HPI 6 mnth follow up: Details: LAST VISIT: GERD (gastroesophageal reflux disease) Postprandial abdominal bloating Constipation Postprandial epigastric pain Plan Continue Nexium and avoiding dietary triggers and late night snacking. Staying upright for minimum 3 hours stressed. Continue Dulcolax daily. Increase fluid intake and activity to promote better bowel motility. I will see patient in 6 months, sooner on as needed basis. She is agreeable to this plan and verbalizes understanding of instructions. She was given the opportunity to ask questions and all questions answered. ? TODAY'S VISIT Patient is here today for follow-up. Patient reports that since the last time she was in the office she continues to have abdominal bloating. Patient states that she is not moving her bowels. Takes Dulcolax every day sometimes MiraLax in the morning and still no bowel movements sometimes for 2-3 days. Denies melena, hematochezia, unintentional weight loss or ribbon like stools. Patient denies any dyspepsia, dysphagia or odynophagia. Symptoms of acid reflux are suppressed for the most part with Nexium, however she continues to have acid reflux after meals. Patient is taking Nexium in the morning and famotidine at bedtime Patient is trying to avoid certain dietary triggers. Patient admits that she does not drink enough water throughout the day. Patient denies any nausea or vomiting. Patient denies any diarrhea or mucus in her stools. 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) Patient Tobacco Use Status: Never used Tobacco Second Hand Smoke Exposure: No service: No Current occupational status: disabled Review of Systems Const Denies weight gain and Denies weight loss ENT Reports no additional complaints, Denies dysphagia and Denies odynophagia Card Reports no additional complaints Resp Reports no additional complaints GI Denies abdominal pain, Denies belching, Denies melena, Denies bloating, Denies change in bowel habits, Reports constipation, Denies dysphagia, Denies excessive flatus, Denies dyspepsia, Denies heartburn, Denies diarrhea, Denies loose stools, Denies nausea, Denies odynophagia and Denies vomiting Reports no additional complaints Musc Reports no additional complaints Neuro Reports no additional complaints Psych Reports no additional complaints Endo Reports no additional complaints Physical Exam Vital Signs: Last Vital Signs Pulse 62 08/17/24 08:31 BP 172/84 H 08/17/24 08:31 Pulse Ox 96 08/17/24 08:31 Oxygen Delivery Method Room Air 08/17/24 08:31 BMI result Body Mass Index 22.9 Const General: healthy appearing, no acute distress and well developed Nutritional Appearance: well nourished Orientation/consciousness: patient oriented x3 Resp Effort & Inspection: normal respiratory effort, able to speak in complete sentences, no tracheal deviation and symmetric chest movement Auscultation: clear to auscultation bilaterally Cardio Rate: regular rate GI Inspection: Yes normal to inspection and No distended Palpation (GI): Soft to palpation, not firm, nontender and No hepatosplenomegaly present Auscultation: normal bowel sounds General: Yes no CVA tenderness Back/Spine/Pelvis Back: no CVA tenderness Skin General skin exam: elasticity normal, turgor normal and dry skin Neuro General: patient oriented x3 Psych Appearance: grossly normal Mental Status: mental status grossly normal Assessment & Plan Assessment & Plan (1) GERD (gastroesophageal reflux disease): Code(s): K21.9 - Gastro-esophageal reflux disease without esophagitis Qualifiers: Esophagitis presence: esophagitis presence not specified Qualified Code(s): K21.9 - Gastro-esophageal reflux disease without esophagitis (2) Postprandial abdominal bloating: Code(s): R14.0 - Abdominal distension (gaseous) (3) Constipation: Code(s): K59.00 - Constipation, unspecified Qualifiers: Constipation type: chronic idiopathic constipation Qualified Code(s): K59.04 - Chronic idiopathic constipation (4) Postprandial epigastric pain: Code(s): R10.13 - Epigastric pain (5) IBS (irritable bowel syndrome): Code(s): K58.9 - Irritable bowel syndrome, unspecified Qualifiers: Irritable bowel syndrome type: with constipation Qualified Code(s): K58.1 - Irritable bowel syndrome with constipation Plan Patient will start Trulance. Increase fluid intake and activity to promote better bowel motility. Patient will start taking omeprazole in the morning and famotidine at bedtime. Long discussion with patient about dietary changes. Staying upright for minimum 3 hours after meals discussed with patient. Patient will return in the office in 6 months, sooner on as needed basis. She is agreeable to this plan and verbalizes understanding of instructions. She was given the opportunity to ask questions and all questions answered. Thank you for allowing me to participate in her care Medications: New plecanatide (Trulance) 3 mg PO DAILY 30 tabs 3RF K59.09 - Other constipation omeprazole 40 mg PO DAILY 30 caps 3RF K21.9 - Gastro-esophageal reflux disease without esophagitis Discontinued esomeprazole magnesium (Nexium) Discontinued Reason: Doctor's Order 40 mg PO DAILY 90 caps 3RF K21.9 - Gastro-esophageal reflux disease without esophagitis Coding Level of Care Code Est Pt Level 4 (67178) Complex EM visit Add On G2211 Diagnoses Gastroesophageal reflux disease, unspecified whether esophagitis present K21.9 Esophagitis presence: esophagitis presence not specified Postprandial abdominal bloating R14.0 Chronic idiopathic constipation K59.04 Constipation type: chronic idiopathic constipation Postprandial epigastric pain R10.13 Irritable bowel syndrome with constipation K58.1 Irritable bowel syndrome type: with constipation Time Spent (min) 35 Comment 25 minutes spent with patient and additional 10 minutes spent reviewing her records
== END 2024-08-17 09:07 | disposition home or self-care (01) ==
PROVIDERS: PCP Family Medicine; Visit Provider Nurse Practitioner Family
DX: K21.9 Gastro-esophageal reflux disease without esophagitis (principal); R14.0 Abdominal distension (gaseous); K59.04 Chronic idiopathic constipation; R10.13 Epigastric pain; K58.1 Irritable bowel syndrome with constipation
CPT/HCPCS: 99214; G2211

== ENCOUNTER → 2024-08-17 08:30 | Outpatient (BNVA) | payer OTHER, SELFPAY | PROVIDERS: PCP Family Medicine; Visit Provider Nurse Practitioner Family | DX: K21.9 Gastro-esophageal reflux disease without esophagitis (principal); K59.04 Chronic idiopathic constipation; K58.1 Irritable bowel syndrome with constipation; R14.0 Abdominal distension (gaseous); R10.13 Epigastric pain | CPT/HCPCS: 99212 ==

== ENCOUNTER 2024-10-04 08:37 | Outpatient (AMB) | payer OTHER, SELFPAY ==
--- NOTE | 2024-10-04 08:55 | MHC.OFFVIS ---
Vital Signs 10/04/24 09:06 Height 4 ft 11 in Weight 115 lb 15.41 oz BMI 23.4 BP 176/86 H Blood Pressure Location Rt brachial Position Sitting Pulse 60 Pulse Source Pulse Oximeter Pulse Oximetry (%) 95 Oxygen Delivery Method Room Air Intake Visit Reasons: 5 wk f/u constipation Intake Note: ESTABLISHED PATIENT for mgmt of GERD, CIC. Chief Complaint; Pt denies any GI concerns at this time and states that her sx are well controlled since last visit. Transcription Typist Required: Yes Transcription Typist Services: Transcription Typist Present Transcription Typist Name: [id number] Rola + GI LM Information Interpreted: clinical only Accompanied by: Family/Other Allergies pickle Allergy (Mild, Uncoded 10/04/24 08:55) Angioedema HPI HPI 5 wk f/u constipation: Details: LAST VISIT: GERD (gastroesophageal reflux disease) Postprandial abdominal bloating Constipation Postprandial epigastric pain IBS (irritable bowel syndrome) Plan Patient will start Trulance. Increase fluid intake and activity to promote better bowel motility. Patient will start taking omeprazole in the morning and famotidine at bedtime. Long discussion with patient about dietary changes. Staying upright for minimum 3 hours after meals discussed with patient. Patient will return in the office in 6 months, sooner on as needed basis. She is agreeable to this plan and verbalizes understanding of instructions. She was given the opportunity to ask questions and all questions answered. ? Thank you for allowing me to participate in her care Medications New plecanatide (Trulance) 3 mg PO DAILY 30 tabs 3RF K59.09 omeprazole 40 mg PO DAILY 30 caps 3RF K21.9 Discontinued esomeprazole magnesium (Nexium) Discontinued Reason: Doctor's Order 40 mg PO DAILY 90 caps 3RF K21.9 TODAY'S VISIT: Patient is here today for follow-up. Patient is accompanied by her son. Patient reports that since starting her on Trulance she has been doing better. Patient is moving her bowels almost every day. Admits that she still is not drinking enough water. Patient is taking omeprazole 40 mg every morning and her symptoms of acid reflux are suppressed. Patient no longer feels epigastric pain. Denies any postprandial bloating. Denies dyspepsia, dysphagia odynophagia. Denies melena, hematochezia, unintentional weight loss or ribbon like stools. patient reports to be feeling well. He reports to have good appetite. Patient admits that she does not usually eats early breakfast. Usually has breakfast around 11 or 12. 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) Patient Tobacco Use Status: Never used Tobacco Second Hand Smoke Exposure: No service: No Current occupational status: disabled Review of Systems Const Denies weight gain and Denies weight loss ENT Reports no additional complaints, Denies dysphagia and Denies odynophagia Card Reports no additional complaints Resp Reports no additional complaints GI Denies abdominal pain, Denies belching, Denies melena, Denies bloating, Denies change in bowel habits, Denies dysphagia, Denies excessive flatus, Denies dyspepsia, Denies heartburn, Denies diarrhea, Denies loose stools, Denies nausea, Denies odynophagia and Denies vomiting Musc Reports no additional complaints Neuro Reports no additional complaints Psych Reports no additional complaints Endo Reports no additional complaints Physical Exam Vital Signs: Last Vital Signs Pulse 60 10/04/24 09:06 BP 176/86 H 10/04/24 09:06 Pulse Ox 95 10/04/24 09:06 Oxygen Delivery Method Room Air 10/04/24 09:06 BMI result Body Mass Index 23.4 Const General: healthy appearing, no acute distress and well developed Nutritional Appearance: well nourished Orientation/consciousness: patient oriented x3 Resp Effort & Inspection: normal respiratory effort, able to speak in complete sentences, no tracheal deviation and symmetric chest movement Auscultation: clear to auscultation bilaterally Cardio Rate: regular rate GI Inspection: Yes normal to inspection and No distended Palpation (GI): Soft to palpation, not firm, nontender and No hepatosplenomegaly present Auscultation: normal bowel sounds General: Yes no CVA tenderness Back/Spine/Pelvis Back: no CVA tenderness Skin General skin exam: elasticity normal, turgor normal and dry skin Neuro General: patient oriented x3 Psych Appearance: grossly normal Mental Status: mental status grossly normal Assessment & Plan Assessment & Plan (1) GERD (gastroesophageal reflux disease): Code(s): K21.9 - Gastro-esophageal reflux disease without esophagitis Qualifiers: Esophagitis presence: esophagitis presence not specified Qualified Code(s): K21.9 - Gastro-esophageal reflux disease without esophagitis (2) Postprandial abdominal bloating: Code(s): R14.0 - Abdominal distension (gaseous) (3) Constipation: Code(s): K59.00 - Constipation, unspecified Qualifiers: Constipation type: slow transit constipation Qualified Code(s): K59.01 - Slow transit constipation (4) Postprandial epigastric pain: Code(s): R10.13 - Epigastric pain (5) IBS (irritable bowel syndrome): Code(s): K58.9 - Irritable bowel syndrome, unspecified Qualifiers: Irritable bowel syndrome type: with constipation Qualified Code(s): K58.1 - Irritable bowel syndrome with constipation Plan Patient will continue Trulance daily. Increase fluid intake and activity to promote better bowel motility . Continue omeprazole in the morning and famotidine at bedtime. Avoid dietary triggers like that is not impaired standing upright for minimum 3 hours after meals discussed with patient. Patient will follow-up in our office in 6 months, sooner on a as needed basis. She will call us if she will develop any GI concerning symptoms. She is agreeable to this plan and verbalizes understanding all instructions. She was given the opportunity to ask questions and all questions answered. Thank you for allowing me to participate in her care Medications: Refilled omeprazole 40 mg PO DAILY 90 caps 3RF K21.9 - Gastro-esophageal reflux disease without esophagitis plecanatide (Trulance) 3 mg PO DAILY 90 tabs 3RF K59.09 - Other constipation famotidine 40 mg PO BEDTIME 90 tabs 3RF K21.9 - Gastro-esophageal reflux disease without esophagitis Coding Level of Care Code Est Pt Level 4 (07442) Complex EM visit Add On G2211 Diagnoses Gastroesophageal reflux disease, unspecified whether esophagitis present K21.9 Esophagitis presence: esophagitis presence not specified Postprandial abdominal bloating R14.0 Slow transit constipation K59.01 Constipation type: slow transit constipation Postprandial epigastric pain R10.13 Irritable bowel syndrome with constipation K58.1 Irritable bowel syndrome type: with constipation Time Spent (min) 35 Comment 25 minutes spent with patient an additional 10 minutes spent reviewing her record s
[2024-10-04 09:06] VITALS: BP 176/86; PULSE 60; O2SAT 95; BMI 23.4
--- OUTSIDE RECORDS SUMMARY | 2024-10-04 09:09 | XMS_ITS | Encounter Summary ---
Author Organization [employer] Address [address] [place] [address] Care Team Providers Care Snowsport Instructor Name Role Phone Anna Doll MD Primary Care Provider [phone] Encounter Details Date Type Department Care Team ([facility] st Contact Info) Description 07/10/2022 Orders Only [facility] CHC MED & PEDS [address] [place], [place] [phone] Anna Doll MD [address] [place] [address] Chronic anemia (Primary Dx); Mixed hyperlipidemia Social History Tobacco Use Types Packs/Day Years Used Date Smoking Tobacco: Never Assessed Comments Unknown Sex and Gender Information Value Date Recorded Sex Assigned at Female 06/09/2022 10:39 AM EDT Legal Sex Female 10:39 AM EDT Gender Identity Choose not to disclose 10:39 AM EDT Sexual Orientation Choose not to disclose 2021 10:39 AM EDT documented as of this encounter Plan of Treatment Not on file documented as of this encounter Visit Diagnoses Diagnosis Chronic anemia- Primary Unspecified anemia Mixed hyperlipidemia documented in this encounter Care Teams Snowsport Instructor Relationship Specialty Start Date End Date Anna Doll MD [address] [place] [address] PCP - General Family Medicine 01/13/22 documented as of this encounter
--- OUTSIDE RECORDS SUMMARY | 2024-10-04 09:09 | XMS_ITS | Clinical Summary ---
Author Organization [facility] Address [address] [place] [address] Care Team Providers Care Automobile Upholsterer Apprentice Name Role Phone Anna Doll MD Primary Care Provider [phone] Medical History Medical History Date Comments Osteoporosis DX:Osteoporosis Asthma 09/15/2022 DX:Asthma Essential hypertension DX:Essent ial hypertension Hyperlipidemia DX:Hyperlipidemi a Family history of cardiovasc ular disease DX:Family history of cardiov ascular disease Social History Tobacco Use Types Packs/Day Years Used Date Smoking Tobacco: Never Smokeless Tobacco: Never Alcohol Use Standard Drinks/Week Comments Never 0 (1 standard drink = 0.6 oz pur e alcohol) Comments Unknown Sex and Gender Information Value Date Recorded Sex Assigned at Not on file Legal Sex Female 12:53 PM EST Gender Identity Not on file Sexual Orientation Not on file Obstetrics History Last Filed Vital Signs Vital Sign Reading Time Taken Comments Blood Pressure 138/78 04/21/2024 7:41 AM EDT Sit ting L Arm Pulse 66 04/21/2024 7:41 AM EDT Temperature - - Respiratory Rate - - Oxygen Saturation - - Inhaled Oxygen Concentration - - Weight 50.3 kg (111 lb) 04/21/2024 7:41 AM EDT Height 149.9 cm (4' 11 ) 04/21/2024 7:41 AM EDT Body Mass Index 22.42 04/21/2024 7:41 AM EDT Plan of Treatment Health Maintenance Due Date Last Done Comments Breast Cancer Screening 1950 DTaP,Tdap,and Td Vaccines (1 - Tdap) 1969 Pneumococcal Vaccine: 50+ Ye ars (1 of 1 - PCV) 2000 Zoster Vaccines (1 of 2) 2000 Cholesterol Screening (Lipid Panel) 07/20/2022 Colorectal Cancer Screening: Colonoscopy 07/20/2022 Depression Screening 07/20/2022 Falls Risk Assessment 07/20/2022 Hepatitis C Screening 07/20/2022 Osteoporosis Screening (Bone Density Screening) 07/20/2022 Social Influencers of Health Screening 07/20/2022 Hypertension/CHF/CAD Annual BMP Blood Test 09/08/2023 COVID-19 Vaccine ( - 2023-2 5 season) 2024 Influenza Vaccine (#1) 2024 RSV Immunization Patients 60 + Years Old (1 - 1-dose 75+ series) 2025 HIB Vaccines Aged Out No longer eligi ble based on patient's age to complete this topic HPV Vaccines Aged Out No longer eligi ble based on patient's age to complete this topic Hepatitis A Vaccines Aged Out No long er eligible based on patient's age to complete this topic Hepatitis B Vaccines Aged Out No long er eligible based on patient's age to complete this topic IPV Vaccines Aged Out No longer eligi ble based on patient's age to complete this topic MMR Vaccines Aged Out No longer eligi ble based on patient's age to complete this topic Meningococcal ACWY Vaccine Aged Out N o longer eligible based on patient's age to complete this topic Meningococcal B Vacine Aged Out No lo nger eligible based on patient's age to complete this topic RSV Immunization Patients Un nancy 20 months Aged Out No longer eligible b ased on patient's age to complete this topic Varicella Vaccines Aged Out No longer eligible based on patient's age to complete this topic Care Teams Automobile Upholsterer Apprentice Relationship Specialty Start Date End Date Anna Doll MD [address] [place] [id number] PCP - General 02/04/22
--- OUTSIDE RECORDS SUMMARY | 2024-10-04 09:09 | XMS_ITS | Encounter Summary ---
Author Organization [employer] Address [address] [place] [address] Care Team Providers Care Chief Chemist Name Role Phone Anna Doll MD Primary Care Provider [phone] Encounter Details Date Type Department Care Team ([facility] st Contact Info) Description 07/23/2022 Abstract [facility] CHC MED & PEDS [address] [place], [place] [phone] Anna Doll MD [address] [place] [address] Social History Tobacco Use Types Packs/Day Years Used Date Smoking Tobacco: Never Assessed Comments Unknown Sex and Gender Information Value Date Recorded Sex Assigned at Female 06/09/2022 10:39 AM EDT Legal Sex Female 10:39 AM EDT Gender Identity Choose not to disclose 10:39 AM EDT Sexual Orientation Choose not to disclose 2021 10:39 AM EDT COVID-19 Exposure Response Date Recorded In the last 10 days, have yo u been in contact with someone who was confirmed or suspected to have Coronavirus/COVID-19? No / Unsure 07/14/2022 9:27 AM EST documented as of this encounter Plan of Treatment Not on file documented as of this encounter Visit Diagnoses Not on filedocumented in this encounter Care Teams Chief Chemist Relationship Specialty Start Date End Date Anna Doll MD [address] [place] [id number] PCP - General Family Medicine 01/13/22 documented as of this encounter
--- OUTSIDE RECORDS SUMMARY | 2024-10-04 09:09 | XMS_ITS | Encounter Summary ---
Author Organization [employer] Address [address] [place] [address] Care Team Providers Care Convex Grinder Name Role Phone Anna Doll MD Primary Care Provider [phone] Encounter Details Date Type Department Care Team ([facility] st Contact Info) Description 07/20/2024 Orders Only [facility] CHC MED & PEDS [address] [place] [address] ProviderIrene MD Social History Tobacco Use Types Packs/Day Years Used Date Smoking Tobacco: Never Smokeless Tobacco: Never Alcohol Use Standard Drinks/Week Comments Yes 0 (1 standard drink = 0.6 oz pur e alcohol) Housing Stability Answer Date Recorded What is your housing situation today? I have norman reis 06/05/[address] you li ve. Do you have problems with any of the following? None of the above 06/05/2023 Food Insecurity Answer Date Recorded Within the past 12 months, y ou worried that your food would run out before you got money to buy more: Never True 06/05/2023 Within the past 12 months,th e food you bought just didn't last and you didn't have enough money to get more: Never True Transportation Answer Date Recorded In the past 12 months, has l ack of transportation kept you from medical appts, meetings, work or from getting things needed for daily living? No 06/05/2023 Utilities Answer Date Recorded In the past 12 months, has t he electric, gas, oil or water company threatened to shut off services in your home? No 06/05/2023 Depression Answer Date Recorded Patient Health Questionnaire-2 Score 1 04/02/2023 Comments Unknown Sex and Gender Information Value Date Recorded Sex Assigned at Female 06/09/2022 10:39 AM EDT Legal Sex Female 10:39 AM EDT Gender Identity Choose not to disclose 10:39 AM EDT Sexual Orientation Choose not to disclose 2021 10:39 AM EDT documented as of this encounter Plan of Treatment Not on file documented as of this encounter Procedures Procedure Name Priority Date/Time Associated Diagnosis Comments ECG 12-LEAD Routine 07/20/2024 1:35 PM EST documented in this encounter Results * ECG 12 lead (07/20/2024 1:35 PM EST) us Historical Provider ECG ORDERABLES Final Res ult documented in this encounter Visit Diagnoses Not on filedocumented in this encounter Care Teams Convex Grinder Relationship Specialty Start Date End Date nAna Doll MD [address] [place] [address] PCP - General Family Medicine 01/13/22 documented as of this encounter
--- OUTSIDE RECORDS SUMMARY | 2024-10-04 09:10 | XMS_ITS | Clinical Summary ---
Author Organization [employer] Address [address] [facility] [address] [place] [address] Care Team Providers Care Winding Inspector Name Role Phone Anna Doll MD Primary Care Provider [phone] Allergies Active Allergy Reactions Criticality Noted Date Comments Other 12/28/2023 Pecans Pickled Meat Angioedema Low 12/17/2023 Medications albuterol (2.5 MG/3ML) 0.083% nebulizer solution Inhale 3 mL every 6 (six) hours. 01/14/20 22 Active albuterol 108 (90 Base) MCG/ACT inhaler Inhale 2 puffs every 4 (four) hours if needed. 01/14/20 22 Active Diclofenac Sodium 1 % gel Apply 2 g topically every 6 (six) hours. 02/22/20 22 Active polyethylene glycol, PEG, 3350 (MiraLax) 17 GM/SCOOP powder Take by mouth at bed time. 03/04/20 22 Active sennosides (Senokot) 8.6 MG tablet Take 2 tablets by mouth at bed time. 03/04/20 22 Active rosuvastatin (Crestor) 40 MG tabletIndications: Mixed hyperlipidemia Take 1 tablet (40 mg) by mouth in the morning. 90 tablet 1 07/10/20 22 Active Blood Pressure Monitoring (Omron 3 Series BP Monitor) device Check blood pressure on arm as directed ONE TO TWO TIMES DAILY 01/14/20 22 Active ketorolac (Acular) 0.5 % ophthalmic solution PLACE ONE DROP IN OPERATIVE EYE TWICE DAILY STARTING TWO DAYS BEFORE SURGERY 10/02/19 23 Active ezetimibe (Zetia) 10 MG tablet Take 10 mg by mouth in the morning. 02/03/20 Active baclofen (Lioresal) 10 MG tabletIndications: Arthritis Take 0.5 tablets (5 mg) by mouth 3 times daily. 30 tablet 04/02/20 Active Citrucel 500 MG tablet TAKE ONE TABLET EVERY DAY FOR CONSTIPATION 06/09/20 Active Bisacodyl EC 5 MG EC tablet TAKE TWO TABLETS AT BEDTIME 06/09/20 Active aspirin 81 MG EC tablet Take 81 mg by mouth in the morning. Active pantoprazole (ProtoNix) 40 MG EC tablet TAKE ONE TABLET DAILY 30 MINUTES TO ONE HOUR BEFORE BREAKFAST Active cholecalciferol (Vitamin D-3) 50 MCG (2000 UT) capsule Take by mouth Once per day. 11/27/19 Active Hypromellose 0.3 % gel APPLY IN THE RIGHT EYE LID TWICE DAILY 12/31/19 Active losartan (Cozaar) 100 MG tablet Take 1 tablet (100 mg) by mouth Once per day. 90 tablet 1 04/06/20 Active hydroCHLOROthiazid e 12.5 MG tablet Take 1 tablet (12.5 mg) by mouth Once per day. 90 tablet 1 04/06/20 24 Active alendronate (Fosamax) 70 MG tablet Take 1 tablet (70 mg) by mouth every 7 (seven) days. Take in the morning with a full glass of water, on an empty stomach, and do not take anything else by mouth or lie down for the next 30 min. 4 tablet 11 05/19/20 24 025 Active Calcium Carb-Cholecalcifer ol (Calcium 500 + D) 500-5 MG-MCG tablet Take 1 tablet by mouth 2 times daily. 180 tablet 3 05/19/20 24 Active Active Problems Problem Noted Date Diagnosed Date Age-related osteoporosis wit hout current pathological fracture 05/19/2024 Varicose veins of right lower extremity with inf lammation 12/28/2023 Tremor of unknown origin 12/28/2023 Assessment & Plan (04/06/2024 10:53 AM EDT): Referral to neurology for further evaluation of Sx. Assessment & Plan (12/29/2023 11:11 AM EDT): Patient described rhythm movements all through her body, she is concern of this tremor, want to r/o PD or other, will send labs and imaging to help elucidate etiology of symptoms. Consider referral to neurology Cataract of both eyes 07/10/2023 Preop examination 07/10/2023 Assessment & Plan (07/20/2024 12:03 PM EST): Patient will undergo tooth extraction. Denied chest pain, shortness of breath, she is physically active. Her vital signs are stable, EKG reviewed wnl. Labs reviewed were stable. Patient has low CV risk for procedure. Told to hold ASA 5 days prior to procedure, take bp medications the day of procedure. Patient is cleared for surgery Assessment & Plan (07/17/2023 4:43 PM EST): Patient was seen for pre-operative evaluation. Patient reports no symptoms of CP at rest or with exertion, dyspnea at rest or with exertion, PND, LE edema, claudication, or palpitations. Patient does have a hx of CVA, recent testing stress and echo within normal limits. On ASA but aware to stop before procedure. CV Risk is low for the intended procedure. Repeat nursing visit with better controlled BP. Symptomatic varicose veins, right 07/10/2023 Assessment & Plan (07/10/2023 3:24 PM EST): Patient that presented visit with complaints of varicose veins will be referred to Vascular Surgery. Breast cancer screening by mammogram 07/10/2023 Periodontal disease 11/05/2022 Ill-fitting dentures 11/05/2022 Chronic anemia 07/10/2022 Essential hypertension 07/10/2022 Assessment & Plan (07/20/2024 12:00 PM EST): Controlled, keep bp <140/90, keep bp log, continue low sodium diet. Assessment & Plan (04/12/2024 3:22 PM EDT): Uncontrolled. Reprots side effects with amlodipine, will start with diuretic. Nursing Visit Instructions: - If SBP < 140/DBP <90 mmHg in more than 75% of home self-monitoring, continue current medication regimen and make f/u with PCP in 3 month - If SBP >140-165/DBP >90-115 mmHg , add incr hydrochlorothiazide to 25 mg and f/u with PCP in 1 month - If SBP > 165/ DBP> 115 mmHg, consult with covering provider - If SBP <90/DBP <50 mmHg, consult with covering provider. Assessment & Plan (12/29/2023 11:10 AM EDT): Controlled. Continue current regimen Mixed hyperlipidemia 07/10/2022 Encounters Date Type Department Care Team Description 07/20/2024 9:15 AM EST Office Visit [facility] [address] [place] [address] Tristian Lucero MD Essential hypertension (Primary Dx); Preop examination 07/20/2024 Orders Only [facility] [address] [place] [address] ProviderIrene MD 07/20/2024 Travel from Last 3 Months Immunizations Name Administration Dates Next Due Moderna Covid-19 Vaccine 12+ 12/29/2020,12/02/19 21 Pfizer Covid-19 Vaccine 12+ 07/25/2021 Pneumococcal Conjugate PCV 20 03/04/2022 RSV Bivalent 04/06/2024 Tdap 02/21/2022 Zoster, Recombinant 05/29/2022,02/21/2022 Social History Tobacco Use Types Packs/Day Years Used Date Smoking Tobacco: Never Smokeless Tobacco: Never Tobacco Cessation:Counseling Given: Not Answered Alcohol Use Standard Drinks/Week Comments Yes 0 (1 standard drink = 0.6 oz pur e alcohol) Housing Stability Answer Date Recorded What is your housing situation today? I have normanronald reis 06/05/[address] you [...] not to disclose 2021 10:39 AM EDT Last Filed Vital Signs Vital Sign Reading Time Taken Comments Blood Pressure 134/72 07/20/2024 9:20 AM EST Pulse 84 07/20/2024 9:20 AM EST Temperature 37.1 ??C (98.7 ??F) 07/20/2024 9:20 AM ES T Respiratory Rate 20 07/20/2024 9:20 AM EST Oxygen Saturation 98% 04/14/2024 1:41 PM EDT Inhaled Oxygen Concentration - - Weight 49.9 kg (110 lb) 07/20/2024 9:20 AM EST Height 147.3 cm (4' 10 ) 07/20/2024 9:20 AM EST Body Mass Index 22.99 07/20/2024 9:20 AM EST Plan of Treatment Health Maintenance Due Date Last Done Comments CT Colonography 1950 Dental Prophylaxis 1950 Dental X-Ray: Bitewings 1950 FIT DNA/Cologuard 1950 FIT 1950 FOBT 1950 Sigmoidoscopy 1950 Alcohol/Substance Use Screening 1962 Dental Oral Exam 05/09/2023 11/05/2022 Depression Screening 04/02/2024 04/02/2023, 04/02/20 23 SDOH Screening 04/02/2024 04/02/2023 COVID-19 Vaccine ( season) 2024 05/16/2022, 07/25/2021, 12/29/2020, Additional history exists Influenza Vaccine (#1) 2024 Tobacco Screening 12/27/2024 12/28/2023 Mammogram 02/04/2025 02/05/2024 Dental X-Ray: Full Mouth 10/22/2026 10/22/2023, 10/09 Colonoscopy 12/16/2028 12/17/2023 Colorectal Cancer Screening 12/16/2028 Lipid Panel 01/06/2029 01/07/2024, 09/10, 07/09/2022 DTaP/Tdap/Td Vaccines (2 - Td or Tdap) 02/22/2032 02/21/2022 Pneumococcal Vaccine: 50+ Years Completed 03/04/2022 Zoster Vaccines Completed 05/29/2022, 02/21/2022 Hepatitis C Screening Completed 07/09/2022 RSV Patients and Patients Aged 60 years or older Completed 04/06/2024 HIB Vaccines Aged Out No longer eligi [...] patient's age to complete this topic Meningococcal Vaccine Aged Out No rut anny eligible based on patient's age to complete this topic RSV under 20 months Aged Out No longe r eligible based on patient's age to complete this topic Rotavirus Vaccines Aged Out No longer eligible based on patient's age to complete this topic Procedures Procedure Name Priority Date/Time Associated Diagnosis Comments ECG 12-LEAD Routine 08/28/2024 1:36 PM EST Preop examination APTT Routine 07/27/2024 9:25 AM EST Essential hypertension PROTHROMBIN TIME-INR Routine 07/27/2024 9:25 AM EST Essential hypertension COMPREHENSIVE METABOLIC PANEL Routine 07/27/2024 9:25 AM EST Essential hypertension CBC WITH AUTO DIFFERENTIAL Routine 07/27/2024 9:25 AM EST Essential hypertension ECG 12-LEAD Routine 07/20/2024 1:35 PM EST BI MAMMOGRAM SCREENING TOMOSYNTHESIS BILATERAL Routine 02/05/2024 3:45 PM EDT Breast cancer screening by mammogram LIPID PANEL, STANDARD Routine 01/07/2024 9:28 AM EDT Mixed hyperlipidemia COLONOSCOPY Routine 12/17/2023 PANORAMIC RADIOGRAPHIC IMAGE Routine 10/22/2023 1:00 PM EDT Dental caries Dental calculus Periodontal disease Dental abscess PERIODIC ORAL EVALUATION - ESTABLISHED PATIENT Routine 11/05/2022 3:00 PM EDT HEPATITIS C AB W/REFL TO HCV RNA, QN, PCR Routine 07/09/2022 9:15 AM EST from Last 3 Months or Most Recently Relevant to Health Maintenance Results * ECG 12 lead (08/28/2024 1:36 PM EST) Only the most recent of2 resultswithin the time period is included. Narrative Tristian Lucero MD - 08/28/2024 1:36 PM EST Sinus rhythm [id number] No st changes peaked t wakes us Tristian Berumen MD ECG ORDERABLES Fi nal Result * (ABNORMAL) CBC auto differential (07/27/2024 9:25 AM EST) White Blood Count 5.0 4.8 - 10.8 X10*3/uL [facility] Red Blood Count 3.89(L) 4.20 - 5.50 X10*6/uL [facility] Hemoglobin 11.4(L) 12.0 - 16.0 g/dl [facility] Hematocrit 35.0(L) 37.0 - 47.0 % [facility] Mean Corpuscular Volume 90.0 80.0 - 98.0 fL [facility] Mean Corpuscular Hemoglobin 29.3 27.0 - 33.0 pg [facility] Mean Corpuscular HGB Conc 32.6 31.0 - 35.0 g/dl [facility] Red Cell Distribution Width 12.9 11.0 - 16.0 % [facility] Platelet Count 245 160 - 400 X10*3/uL [facility] Mean Platelet Volume 11.2 9.4 - 12.3 fL [facility] Neutrophils Percent Auto 45.6 45 - 73 % [facility] Imm Gran Pct Auto 0.2 0.0 - 0.4 % [facility] Lymphocytes Percent Auto 44.2(H) 20 - 40 % [facility] Monocytes Percent Auto 6.0 2 - 11 % [facility] Eosinophils Percent Auto 3.2 0 - 4 % [facility] Basophils Percent Auto 0.8 0 - 2 % [facility] NRBC Pct Auto 0.0 0.0 - 0.2 /100WBC [facility] Neutrophils Absolute Auto 2.3 2.0 - 8.3 x10*3/uL [facility] Imm Gran Abs Auto 0.01 0.00 - 0.03 X10*3/uL [facility] Lymphocytes Absolute Auto 2.2 1.2 - 4.9 X10*3/uL [facility] Monocytes Absolute Auto 0.3 0.1 - 1.2 X10*3/uL [facility] Eosinophils Absolute Auto 0.2 0.0 - 0.4 X10*3/uL [facility] Basophils Absolute Auto 0.0 0.0 - 0.2 X10*3/uL [facility] NRBC Abs Auto 0.000 0.0 - 0.012 X10*3/uL [facility] Blood Venous blood specimen / Unknown 07/27/2024 9:25 AM EST 07/27/2024 10:09 AM EST us Tristian Berumen MD LAB BLOOD ORDERABL ES Final Result [facility] [address] [place] [address] [phone] * Partial Thromboplastin Time, Activated (APTT) (07/27/2024 9:25 AM EST) Partial Thromboplastin Time 29.3 26.0 - 36.8 SEC [facility] Comment:For information rega rding the monitoring of direct thrombininhibitors, please refer to Pharmacy. Blood Venous blood specimen / Unknown 07/27/2024 9:25 AM EST 07/27/2024 10:09 AM EST Tristian Berumen MD LAB BLOOD ORDERABL ES Final Result Performing Organization Address [facility] Co de Phone Number [facility] [address] [place] [phone] * Prothrombin Time-INR (07/27/2024 9:25 AM EST) [facility] Prothrombin Time 11.4 10.9 - 12.4 SEC [facility] INTERNATIONAL NORM RATIO 1.0 0.9 - 1.1 [facility] Comment:INTERNATIONAL NORMAL IZED RATIO (INR) REFERENCE RANGES Reference RangeFor patients not on anticoagulant therapy: 0.9 - 1.1INR ranges for oral anticoagulanttherapy:For prevention and treatment of venous thrombosis and pulmonary embolism: 2.0 - 3.0For acute myocardial infarction with aspirin therapy: 2.0 - 3.0For acute myocardial infarction without aspirin therapy: 3.0 - 4.0For patients with mechanical prosthetic heart valves: 2.5 - 3.5 Blood Venous blood specimen / Unknown 07/27/2024 9:25 AM EST 07/27/2024 10:09 AM EST Tristian Berumen MD LAB BLOOD ORDERABL ES Final Result Performing Organization Address [facility] Co de Phone Number [facility] [address] [place] [phone] * (ABNORMAL) Comprehensive Metabolic Panel (07/27/2024 9:25 AM EST) [facility] Sodium 141 135 - 145 mmol/L [facility] Potassium 3.6 3.3 - 5.1 mmol/L [facility] Chloride 110(H) 96 - 108 mmol/L [facility] Carbon Dioxide 29 22 - 29 mmol/L [facility] Anion Gap 6(L) 12 - 20 [facility] Urea Nitrogen (BUN) 19(H) 9 - 16 mg/dL [facility] Creatinine, Serum 0.76 0.5 - 1.4 mg/dL [facility] Estimated Glomerular Filt Rate >60 [facility] Comment:Chronic Kidney Disea se: Estimated GFR < 60 mL/min/1.22g3Iaxrev Kidney Disease: Estimated GFR < 15 mL/min/1.73m2 Glucose 94 60 - 115 mg/dL [facility] Calcium 8.5 8.4 - 10.2 mg/dL [facility] Bilirubin, Total 0.5 0.0 - 1.0 mg/dL [facility] Aspartate Amino Transferase 20 5 - 31 U/L [facility] Alanine Aminotransferase 17 0 - 31 U/L [facility] Total Protein 7.2 6.5 - 8.0 g/dL [facility] Albumin Level 4.0 3.5 - 5.0 g/dL [facility] Alkaline Phosphatase 65 39 - 117 U/L [facility] Blood Venous blood specimen / Unknown 07/27/2024 9:25 AM EST 07/27/2024 10:09 AM EST us Tristian Berumen MD LAB BLOOD ORDERABL ES Final Result [facility] [address] [place] [phone] * BI Mammogram Screening Tomosynthesis Bilateral (02/05/2024 3:45 PM EDT) Anatomical Region Laterality Modality Breast Bilateral Mammography 02/05/2024 3:45 PM EDT Narrative 03/04/2024 11:40 AM EDT ? [facility] ? [address] ?[place] [address] ? Mammography Report ? Signed ? Patient: Herron,Massiel ?MR#: [id number] ? : 1950 ?Acct:[id number] ? Age/Sex: 73 / F ?ADM Date: 02/05/24 ? Loc: HO.MAMMO ? Attending Dr: Anna Doll MD ? Ordering Physician: Anna Doll MD ?Results: 1Nega ?? tive ? Date of Service: 02/05/24 ?Follow Up: 1 Year From Orig ?? inal Mammogram ? Procedure(s): MM tomosynthesis screening BI ?? Accession Number(s): [id number] ? cc: Anna Doll MD ? EXAMINATION: ?? MM SCREENING DIGITAL BREAST TOMOSYNTHESIS, BILATERAL ? CLINICAL INFORMATION: ? Screening. Asymptomatic. ? COMPARISON: ?? Mammography: This is a baseline mammogram ? TECHNIQUE: ?? Digital breast tomosynthesis is performed in both the craniocaudal and ?? mediolateral oblique views along with computer-aided detection (CAD). ?? Synthesized 2D images are generated from the tomosynthesis. ? FINDINGS: ?? The breasts are heterogeneously dense, which may obscure small masses ?? (ACR BI-RADS breast composition Category c). ? There are no significant masses, abnormal calcifications, or other ?? abnormalities. ? MM/MM tomosynthesis screening BI ?? IMPRESSION: ?? No mammographic evidence of malignancy. ? ASSESSMENT: ? BI-RADS BI-RADS 1 - Negative ? RECOMMENDATION: ?? Routine annual mammography screening. ? 1 year F/U ? This examination should not preclude the clinical evaluation of a ?? suspicious palpable abnormality. ? This patient's information was entered into a reminder system with a ?? target due date for their next mammogram. ? Dictated By: ?Rajani Oquendo MD ? Signed By: ?<Electronically signed by Rajani Oquendo MD in OV> ? 03/04/24 1137 ? DD/ 1545 ? TD/TT: ? Information Writer: ? Procedure Note Donmirthater, Image - 03/04/2024 [facility] [address] [place] [address] Mammography Report Signed Patient: Lula Herron#: [id number] : 1950Acct:[id number] Age/Sex: 73 / FADM Date: 02/05/24 Loc: HO.MAMMO Attending Dr: Anna Doll MD Ordering Physician: Anna Doll MDResults: 1Nega tive Date of Service: 02/05/24Follow Up: 1 Year From Orig ina Mammogram Procedure(s): MM tomosynthesis screening BI Accession Number(s): [id number] cc: Anna Doll MD EXAMINATION: MM SCREENING DIGITAL BREAST TOMOSYNTHESIS, BILATERAL CLINICAL INFORMATION: Screening. Asymptomatic. COMPARISON: Mammography: This is a baseline mammogram TECHNIQUE: Digital breast tomosynthesis is performed in both the craniocaudal and mediolateral oblique views along with computer-aided detection (CAD). Synthesized 2D images are generated from the tomosynthesis. FINDINGS: The breasts are heterogeneously dense, which may obscure small masses (ACR BI-RADS breast composition Category c). There are no significant masses, abnormal calcifications, or other abnormalities. MM/MM tomosynthesis screening BI IMPRESSION: No mammographic evidence of malignancy. ASSESSMENT: BI-RADS BI-RADS 1 - Negative RECOMMENDATION: Routine annual mammography screening. 1 year F/U This examination should not preclude the clinical evaluation of a suspicious palpable abnormality. This patient's information was entered into a reminder system with a target due date for their next mammogram. Dictated By: Rajani Oquendo MD Signed By: <Electronically signed by Rajani Oquendo MD in OV> 03/04/24 1137 DD/ 1545 TD/TT: Information Writer: Anna Doll MD IMG BI PROCEDURES Final Resul t * (ABNORMAL) Lipid Panel, Standard (01/07/2024 9:28 AM EDT) Triglycerides 88 <150 mg/dL [facility] Comment:Desirable Triglyceri de: less than 150 mg/dLBorderline High Triglyceride 150-199 mg/dLHigh Triglyceride: 200-499 mg/dLVery High Triglyceride: greater than or equal to 5OO mg/dL Cholesterol 267(H) <200 mg/dL [facility] Comment:Desirable Cholestero l: less than 200 mg/dLBorderline High Cholesterol: 200-239 mg/dLHigh Cholesterol: greater than 239 mg/dL LDL Cholesterol Calculated 181(H) <100 mg/dL [facility] Comment:Desirable LDL: less than 100 mg/dLNear Optimal/Above Optimal LDL: 110- 129 mg/dLBorderline High LDL: 130-159 mg/dLHigh LDL: 160-189 mg/dLVery High LDL: greater than or equal to 190 mg/dL HDL Cholesterol 69 >40 mg/dL [facility] Comment:Desirable HDL: great er than 40 mg/dL Note: This HDL assay may give artificially low results in patients with liver disease. Blood Venous blood specimen / Unknown 01/07/2024 9:28 AM EDT 01/07/2024 2:30 PM EDT us Anna Doll MD LAB BLOOD ORDERABLES Final Re sult [facility] [address] [place] [phone] * (ABNORMAL) Colonoscopy (12/17/2023) Anatomical Region Laterality Modality Endoscopy 12/17/2023 Narrative 12/17/2023 Colon, transverse, polypectomy x2: ??Tubular adenoma (2); negative for high- grade ?? dysplasia. Historical Provider ENDOSCOPY PROCEDURE ORDER SYD Final Result * Hepatitis C Antibody with Reflex to HCV, RNA, Quantitative, Real-Time PCR (07/09/2022 9:15 AM EST) Hepatitis C Antibody NON-REACT DENNIS NON-REACT DENNIS OFERTALDIAt Index 0.13 <1.00 [facility] Comment: HCV antibody was non-reactive. There is no laboratory evidence of HCV infection. In most cases, no further action is required. However, if recent HCV exposure is suspected, a test for HCV RNA (test code 29385) is suggested. For additional information please refer to [email or web address]/faq/PQP61w7 (This link is being provided for informational/ educational purposes only.) 07/09/2022 9:15 AM EST 07/09/2022 9:16 AM EST Anna Doll MD LAB BLOOD ORDERABLES Final Re sult [facility] [address] [place] [address] [employer] [place] [facility] [address], [facility] [place] [address] from Last 3 Months or Most Recently Relevant to Health Maintenance [place] [address] [place] [address] - [facility] Care Teams Winding Inspector Relationship Specialty Start Date End Date Anna Doll MD [address] [place] [phone] PCP - General Family Medicine 01/13/22
== END 2024-10-04 09:38 | disposition home or self-care (01) ==
PROVIDERS: PCP Family Medicine; Visit Provider Nurse Practitioner Family
DX: K21.9 Gastro-esophageal reflux disease without esophagitis (principal); R14.0 Abdominal distension (gaseous); K59.01 Slow transit constipation; R10.13 Epigastric pain; K58.1 Irritable bowel syndrome with constipation
CPT/HCPCS: 99214; G2211

== ENCOUNTER → 2024-10-04 08:37 | Outpatient (BNVA) | payer OTHER, SELFPAY | PROVIDERS: PCP Family Medicine; Visit Provider Nurse Practitioner Family | DX: K59.01 Slow transit constipation (principal); K21.9 Gastro-esophageal reflux disease without esophagitis; R14.0 Abdominal distension (gaseous); R10.13 Epigastric pain | CPT/HCPCS: 99212 ==

== ENCOUNTER → 2025-02-27 10:11 | Outpatient (REF) | payer OTHER, SELFPAY ==
--- NOTE | 2025-02-27 10:18 | HM_ITS ---
Conclusion: 1. Patient was monitored for total period of 1 day and 23 hours 2. Baseline was normal sinus rhythm with average heart of 65 beats per minute 3. Occasional PACs and PVCs noted without any sustained arrhythmias 4. No significant pauses noted 5. No patient reported events MTDD
--- OUTSIDE RECORDS SUMMARY | 2025-02-27 11:03 | XMS_ITS | Clinical Summary ---
Author Organization [facility] Address [address] [place] [address] Care Team Providers Care Insulation Professional Name Role Phone Anna Doll MD Primary Care Provider [phone] Medical History Medical History Date Comments Osteoporosis [...] Panel) 07/20/2022 Colorectal Cancer Screening: Colonoscopy 07/20/2022 Falls Risk Assessment 07/20/2022 Hepatitis C Screening 07/20/2022 Osteoporosis Screening (Bone Density Screening) 07/20/2022 Social Influencers of Health Screening 07/20/2022 Hypertension/CHF/CAD Annual BMP Blood Test 09/08/2023 COVID-19 Vaccine (1 - 2023-2 5 season) 2024 Depression Screening 08/10/2024 Influenza Vaccine (#1) 2025 RSV Immunization Adult Patie nts (1 - 1-dose 75+ series) 2025 HIB [...] age to complete this topic Meningococcal B Vaccine Aged Out No l onger eligible based on patient's age to complete this topic RSV Immunization Patients Un nancy 20 months Aged Out No longer eligible b ased on patient's age to complete this topic Varicella Vaccines Aged Out No longer eligible based on patient's age to complete this topic Care Teams Insulation Professional Relationship Specialty Start Date End Date Anna Doll MD [address] [place] [address] PCP - General 02/04/22
== END ==
LOC: HO.CARD 10:11
PROVIDERS: PCP Family Medicine; Visit Provider Family Medicine
DX: R42 Dizziness and giddiness (principal)
CPT/HCPCS: 93225

== ENCOUNTER → 2025-02-27 10:18 | Outpatient (BNV) | payer OTHER, SELFPAY | PROVIDERS: PCP Family Medicine; Visit Provider Internal Medicine Cardiovascular Disease | DX: I49.1 Atrial premature depolarization (principal); I49.3 Ventricular premature depolarization | CPT/HCPCS: 93227 ==

== ENCOUNTER 2025-02-28 10:14 | Outpatient (REF) | payer OTHER, SELFPAY ==
--- OUTSIDE RECORDS SUMMARY | 2025-02-28 11:18 | XMS_ITS | Clinical Summary ---
Author Organization [facility] Address [address] [place] [address] Care Team Providers Care Enterprise Systems Manager Name Role Phone Anna Doll MD Primary Care Provider [phone] Medical History Medical History Date Comments Osteoporosis [...] age to complete this topic Care Teams Enterprise Systems Manager Relationship Specialty Start Date End Date Anna Doll MD [address] [place] [address] PCP - General 02/04/22
--- OUTSIDE RECORDS SUMMARY | 2025-02-28 11:18 | XMS_ITS | Encounter Summary ---
Author Organization [employer] Address [address] [facility] [address] [place] [address] Care Team Providers Care Manager Medical Device Name Role Phone Anna Doll MD Primary Care Provider [phone] Encounter Details Date Type Department Care Team (Late st Contact Info) Description 07/10/2022 Orders Only [facility] [address] [place] [address] Anna Doll MD [address] [place] [address] Chronic anemia (Primary Dx); Mixed hyperlipidemia Social [...] as of this encounter Plan of Treatment Upcoming Encounters Date Type Department Care Team (Late st Contact Info) Description 03/06/2025 10:15 AM EDT Office Visit [facility] [address] [place], [place] [id number] Anna Doll MD [address] [place] [address] documented as of this encounter Visit Diagnoses Diagnosis Chronic anemia- Primary Unspecified anemia Mixed hyperlipidemia documented in this encounter Care Teams Manager Medical Device Relationship Specialty Start Date End Date Anna Doll MD [address] [place] [address] PCP - General Family Medicine 01/13/22 documented as of this encounter
[2025-02-28 14:08] LABS: MANUAL DIFF FLAG NO
[2025-02-28 14:15] LABS: Hematocrit 34.5 % (37.0-47.0); Hemoglobin 10.9 g/dl (12.0-16.0); Imm Gran Abs Auto 0.01 X10*3/uL (0.00-0.03); Imm Gran Pct Auto 0.2 % (0.0-0.4); Lymphocytes Absolute Auto 1.8 X10*3/uL (1.2-4.9); Mean Corpuscular HGB Conc 31.6 g/dl (31.0-35.0); Mean Corpuscular Hemoglobin 28.9 pg (27.0-33.0); Mean Corpuscular Volume 91.5 fL (80.0-98.0); NRBC Abs Auto 0.000 X10*3/uL (0.0-0.012); NRBC Pct Auto 0.0 /100WBC (0.0-0.2); Platelet Count 236 X10*3/uL (160-400); Red Blood Count 3.77 X10*6/uL (4.20-5.50); White Blood Count 5.3 X10*3/uL (4.8-10.8)
[2025-02-28 15:02] LABS: Alanine Aminotransferase 19 U/L (0-31); Albumin Level 4.1 g/dL (3.5-5.0); Alkaline Phosphatase 68 U/L (39-117); Anion Gap 10 (12-20); Aspartate Amino Transferase 31 U/L (5-31); Blood Urea Nitrogen 18 mg/dL (9-16); Calcium 8.8 mg/dL (8.4-10.2); Carbon Dioxide 26 mmol/L (22-29); Chloride 112 mmol/L (96-108); Cholesterol 250 mg/dL (<200); Estimated Glomerular Filt Rate > 60; HDL Cholesterol 60 mg/dL (>40); Potassium 4.4 mmol/L (3.3-5.1); Sodium 144 mmol/L (135-145); Total Protein 7.0 g/dL (6.5-8.0); Triglycerides 119 mg/dL (<150)
== END 2025-02-28 10:15 | disposition home or self-care (01) ==
LOC: HO.CHCLDS 10:14
PROVIDERS: Visit Provider Family Medicine
DX: R42 Dizziness and giddiness (principal); E78.2 Mixed hyperlipidemia; M81.0 Age-related osteoporosis without current pathological fracture
CPT/HCPCS: 36415; 80053; 80061; 82306; 84443; 85025

== ENCOUNTER 2025-03-27 09:00 | Outpatient (AMB) | payer OTHER, SELFPAY ==
--- NOTE | 2025-03-27 09:05 | MHC.OFFVIS ---
Vital Signs 03/27/25 09:12 Height 4 ft 11 in Weight 118 lb BMI 23.8 BP 140/82 H Blood Pressure Location Lt brachial Position Sitting Pulse 83 Pulse Oximetry (%) 96 Oxygen Delivery Method Room Air Intake Visit Reasons: 6mo f/u Intake Note: Patient 6 month follow up for GERD. Patient cc: heartburn on and off, constipation, difficulty swallowing, and dizziness/tiredness on and off. Marketing Associate Required: No Accompanied by: Family/Other Allergies pickle Allergy (Mild, Uncoded 10/24/24 10:01) Angioedema HPI HPI 6mo f/u: Details: LAST VISIT: GERD (gastroesophageal reflux disease) Postprandial abdominal bloating Constipation Postprandial epigastric pain IBS (irritable bowel syndrome) Plan Patient will continue Trulance daily. Increase fluid intake and activity to promote better bowel motility . Continue omeprazole in the morning and famotidine at bedtime. Avoid dietary triggers like that is not impaired standing upright for minimum 3 hours after meals discussed with patient. Patient will follow-up in our office in 6 months, sooner on a as needed basis. She will call us if she will develop any GI concerning symptoms. She is agreeable to this plan and verbalizes understanding all instructions. She was given the opportunity to ask questions and all questions answered. ? Thank you for allowing me to participate in her care Refilled omeprazole 40 mg PO DAILY 90 caps 3RF K21.9 plecanatide (Trulance) 3 mg PO DAILY 90 tabs 3RF K59.09 famotidine 40 mg PO BEDTIME 90 tabs 3RF K21.9 TODAY'S VISIT Patient is here today for follow-up the patient is accompanied by her daughter in law. Patient reports that she has been feeling fairly well. Occasional constipation. Uses Trulance daily. Occasionally patient will use Dulcolax if no bowel movements for 2-3 days. Occasional abdominal bloating. Patient reports depending on what she eats. Patient usually does not eat breakfast. Her 1st meal is around 11:00. Patient denies dyspepsia, dysphagia or odynophagia. Acid reflux is suppressed with omeprazole. Patient takes omeprazole daily. Famotidine uses at bedtime as needed. One to twice a week. Patient denies any nausea or vomiting. Patient reports to have fair appetite. Denies melena, hematochezia, unintentional weight loss or ribbon like stools. Patient had colonoscopy in December of 2023. Two tubular adenoma without high-grade dysplasia or carcinoma found. Recommendation for colonoscopy in 5 years. 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) Patient Tobacco Use Status: Never used Tobacco Second Hand Smoke Exposure: No service: No Current occupational status: disabled Review of Systems Const Denies weight gain and Denies weight loss ENT Reports no additional complaints, Denies dysphagia and Denies odynophagia Card Reports no additional complaints Resp Reports no additional complaints GI Denies abdominal pain, Denies belching, Denies melena, Denies bloating, Denies change in bowel habits, Denies dysphagia, Denies excessive flatus, Denies dyspepsia, Denies heartburn, Denies diarrhea, Denies loose stools, Denies nausea, Denies odynophagia and Denies vomiting Musc Reports no additional complaints Neuro Reports no additional complaints Psych Reports no additional complaints Endo Reports no additional complaints Physical Exam Vital Signs: Last Vital Signs Pulse 83 03/27/25 09:12 BP 140/82 H 03/27/25 09:12 Pulse Ox 96 03/27/25 09:12 Oxygen Delivery Method Room Air 03/27/25 09:12 BMI result Body Mass Index 23.8 Const General: healthy appearing, no acute distress and well developed Nutritional Appearance: well nourished Orientation/consciousness: patient oriented x3 Resp Effort & Inspection: normal respiratory effort, able to speak in complete sentences, no tracheal deviation and symmetric chest movement Auscultation: clear to auscultation bilaterally Cardio Rate: regular rate GI Inspection: Yes normal to inspection and No distended Palpation (GI): Soft to palpation, not firm, nontender and No hepatosplenomegaly present Auscultation: normal bowel sounds General: Yes no CVA tenderness Back/Spine/Pelvis Back: no CVA tenderness Skin General skin exam: elasticity normal, turgor normal and dry skin Neuro General: patient oriented x3 Psych Appearance: grossly normal Mental Status: mental status grossly normal Assessment & Plan Assessment & Plan (1) GERD (gastroesophageal reflux disease): Code(s): K21.9 - Gastro-esophageal reflux disease without esophagitis Category: Medical Qualifiers: Esophagitis presence: esophagitis presence not specified Qualified Code(s): K21.9 - Gastro-esophageal reflux disease without esophagitis (2) Constipation: Code(s): K59.00 - Constipation, unspecified Category: Medical Qualifiers: Constipation type: slow transit constipation Qualified Code(s): K59.01 - Slow transit constipation (3) Postprandial abdominal bloating: Code(s): R14.0 - Abdominal distension (gaseous) (4) Postprandial epigastric pain: Code(s): R10.13 - Epigastric pain Plan Patient will continue Trulance daily. Increase fluid intake and activity to promote better bowel motility. Patient was instructed to increase fiber intake as well as fluid intake to improve her bowel movements. Patient will continue taking omeprazole daily. Avoid dietary triggers and late night snacking. Staying upright for minimum 3 hours after meals discuss with patient. May use famotidine as needed. Patient will return in 6 months, sooner on as needed basis. She is agreeable to this plan and verbalizes understanding of instructions. She was given the opportunity to ask questions and all questions answered. Thank you for allowing me to participate in her care Medications: Refilled plecanatide (Trulance) 3 mg PO DAILY 90 tabs 3RF K59.09 - Other constipation omeprazole 40 mg PO DAILY 90 caps 3RF K21.9 - Gastro-esophageal reflux disease without esophagitis famotidine 40 mg PO BEDTIME 90 tabs 3RF K21.9 - Gastro-esophageal reflux disease without esophagitis Coding Level of Care Code Est Pt Level 4 (76622) Complex EM visit Add On G2211 Diagnoses Gastroesophageal reflux disease, unspecified whether esophagitis present K21.9 Esophagitis presence: esophagitis presence not specified Slow transit constipation K59.01 Constipation type: slow transit constipation Postprandial abdominal bloating R14.0 Postprandial epigastric pain R10.13 Time Spent (min) 35 Comment 25 minutes spent with patient and additional 10 minutes spent reviewing her records
[2025-03-27 09:12] VITALS: BP 140/82; PULSE 83; O2SAT 96; BMI 23.8
--- OUTSIDE RECORDS SUMMARY | 2025-03-27 09:31 | XMS_ITS | Clinical Summary ---
Author Organization [facility] Address [address] [place] [address] Care Team Providers Care Electrical Products Sales Engineer Name Role Phone Anna Doll MD Primary Care Provider [phone] Medical History Medical History Date Comments Osteoporosis [...] age to complete this topic Care Teams Electrical Products Sales Engineer Relationship Specialty Start Date End Date Anna Doll MD [address] [place] [address] PCP - General 02/04/22
--- OUTSIDE RECORDS SUMMARY | 2025-03-27 09:31 | XMS_ITS | Encounter Summary ---
Author Organization [employer] Address [address] [facility] [address] [place] [address] Care Team Providers Care Vp Design Name Role Phone Anna Doll MD Primary Care Provider [phone] Encounter Details Date Type Department Care Team ([facility] st Contact Info) Description 07/10/2022 Orders Only [facility] [address] [place], [place] [phone] Anna Doll MD [address] [place] [address] Chronic anemia (Primary Dx); Mixed hyperlipidemia Social [...] hyperlipidemia documented in this encounter Care Teams Vp Design Relationship Specialty Start Date End Date Anna Doll MD [address] [place] [address] PCP - General Family Medicine 01/13/22 documented as of this encounter
== END 2025-03-27 09:26 | disposition home or self-care (01) ==
LOC: HO.HGI 09:01
PROVIDERS: PCP Family Medicine; Visit Provider Nurse Practitioner Family
DX: K21.9 Gastro-esophageal reflux disease without esophagitis (principal); K59.01 Slow transit constipation; R14.0 Abdominal distension (gaseous); R10.13 Epigastric pain
CPT/HCPCS: 99214; G2211

== ENCOUNTER → 2025-03-27 09:00 | Outpatient (BNVA) | payer OTHER, SELFPAY | PROVIDERS: PCP Family Medicine; Visit Provider Nurse Practitioner Family | DX: K21.9 Gastro-esophageal reflux disease without esophagitis (principal); K59.00 Constipation, unspecified | CPT/HCPCS: 99212 ==

== ENCOUNTER 2025-07-18 09:32 | Outpatient (REF) | payer OTHER, SELFPAY ==
[2025-07-18 14:25] LABS: MANUAL DIFF FLAG NO
[2025-07-18 14:27] LABS: Hematocrit 36.1 % (37.0-47.0); Hemoglobin 11.4 g/dl (12.0-16.0); Imm Gran Abs Auto 0.01 X10*3/uL (0.00-0.03); Imm Gran Pct Auto 0.2 % (0.0-0.4); Lymphocytes Absolute Auto 2.1 X10*3/uL (1.2-4.9); Mean Corpuscular HGB Conc 31.6 g/dl (31.0-35.0); Mean Corpuscular Hemoglobin 28.9 pg (27.0-33.0); Mean Corpuscular Volume 91.4 fL (80.0-98.0); NRBC Abs Auto 0.000 X10*3/uL (0.0-0.012); NRBC Pct Auto 0.0 /100WBC (0.0-0.2); Platelet Count 231 X10*3/uL (160-400); Red Blood Count 3.95 X10*6/uL (4.20-5.50); White Blood Count 5.6 X10*3/uL (4.8-10.8)
[2025-07-18 15:01] LABS: Alanine Aminotransferase 11 U/L (0-31); Albumin Level 4.2 g/dL (3.5-5.0); Alkaline Phosphatase 77 U/L (39-117); Anion Gap 9 (12-20); Aspartate Amino Transferase 25 U/L (5-31); Blood Urea Nitrogen 20 mg/dL (9-16); Calcium 9.3 mg/dL (8.4-10.2); Carbon Dioxide 27 mmol/L (22-29); Chloride 109 mmol/L (96-108); Cholesterol 264 mg/dL (<200); Estimated Glomerular Filt Rate > 60; HDL Cholesterol 69 mg/dL (>40); Iron 89 mcg/dL (30-160); Magnesium 2.4 mg/dL (1.6-2.6); Percent Iron Saturation 31 % (15-50); Potassium 3.8 mmol/L (3.3-5.1); Sodium 141 mmol/L (135-145); Total Iron Binding Capacity 284 mcg/dL (228-428); Total Protein 7.2 g/dL (6.5-8.0); Triglycerides 163 mg/dL (<150); Unsaturated Iron Binding 195 ug/dL
[2025-07-18 15:24] LABS: Ferritin 40 ng/mL (10-250)
[2025-07-18 15:36] LABS: Folate 7.8 ng/mL (> or = 4.0); Vitamin B12 197 pg/mL (200-900)
== END 2025-07-18 09:33 | disposition home or self-care (01) ==
LOC: HO.CHCLDS 09:32
PROVIDERS: Visit Provider Family Medicine
DX: E78.2 Mixed hyperlipidemia (principal); D64.9 Anemia, unspecified; R42 Dizziness and giddiness
CPT/HCPCS: 36415; 80053; 80061; 82607; 82728; 82746; 83540; 83735; 83921; 85025